=== PATIENT | female | born 1945 | race Caucasian/White ===

== ENCOUNTER → 2017-01-05 | Outpatient (CLI) | payer MEDICARE, BC ==
[~2017-01-05] MED LIST: GASTROGRAFIN SOLUTION 30ML (Q9963) As Ordered ONE; ISOVUE-370 76% 100ML VIAL (Q9967) As Ordered ONE
--- NOTE | 2017-01-05 14:54 | REP ---
Clinical: Weight loss. Technique: Axial contrast enhanced images from the lung bases to the pubic symphysis using oral and 100 ml Isovue 370 intravenous contrast material with precontrast and delayed images of the abdomen as well as coronal and sagittal re-formations. Comparison: None. Findings: Lung bases demonstrate diffuse fibrosis and honeycombing without acute consolidation or obvious nodule/mass. Visualized heart and pericardium appear normal. Small hiatal hernia noted at the gastroesophageal junction. Liver, spleen, pancreas, bilateral adrenal glands and kidneys are relatively normal. Few bilateral simple renal cysts measure up to 1.5 cm. The patient is status post cholecystectomy. The enteric system is without obstruction or obvious acute inflammatory process. Pelvis demonstrates normal bladder and age-appropriate uterus/adnexa. No pelvic fluid or ascites. No obvious intraperitoneal or retroperitoneal adenopathy. No free air. Atherosclerotic changes to the thoracic aorta and vasculature noted without aneurysm. Musculoskeletal structures demonstrate degenerative changes without focal osseous abnormality. Impression: Chronic nonacute changes as described above. No obvious acute intra-abdominal or pelvic pathology appreciated. Lung bases demonstrate fibrosis and honeycombing. Signed by Amanuel Aly MD 01/05/2017 11:31 A
== END ==
LOC: M RAD 09:29
PROVIDERS: ATTEND Nurse Practitioner Adult Health
DX: J98.8 Other specified respiratory disorders (principal); R63.4 Abnormal weight loss
CPT/HCPCS: 74178; Q9963; Q9967

== ENCOUNTER → 2017-02-22 | Outpatient (REF) | payer MEDICARE, BC ==
[2017-02-28 00:06] LABS: SJOGREN'S ANTI SS-A <0.2 AI (0.0-0.9); SJOGREN'S ANTI SS-B <0.2 AI (0.0-0.9)
== END ==
LOC: M LAB REF 17:08
PROVIDERS: ATTEND Internal Medicine Pulmonary Disease
DX: J84.10 Pulmonary fibrosis, unspecified (principal)

== ENCOUNTER → 2017-03-14 | Outpatient (CLI) | payer MEDICARE, BC ==
--- NOTE | 2017-03-14 14:53 | REP ---
PELVIC ULTRASOUND: Real-time sonographic evaluation of the pelvis is performed utilizing transabdominal and endovaginal technique. The bladder measures 4.3 x 2.8 x 7.2 cm. The uterus measures 7.5 x 3.0 x 4.3 cm. Oval heterogenous polyp or mass in the endometrial cavity measures 1.4 x 0.9 x 1.9 cm. There is a tiny amount of surrounding fluid. The right ovary could not be visualized, nor could the left ovary. I see no adnexal mass or free fluid. There is a fibroid posteriorly in the uterus measuring 1.6 cm in diameter. IMPRESSION: Oval mass or polyp in the endometrial cavity measuring 1.4 x 0.6 x 1.9 cm. Tiny amount of surrounding fluid is seen.
== END ==
LOC: M WHC 13:02
PROVIDERS: ATTEND Nurse Practitioner Family
DX: N84.0 Polyp of corpus uteri (principal); N95.0 Postmenopausal bleeding

== ENCOUNTER → 2017-03-16 | Outpatient (CLI) | payer MEDICARE, BC ==
[2017-03-16 16:34] LABS: BLOOD UREA NITROGEN 13 MG/DL (7-18); CREATININE FOR GFR 0.65 MG/DL (0.55-1.02); GLOMERULAR FILTRATION RATE > 60.0 (>39)
== END ==
LOC: M LAB 15:23
PROVIDERS: ATTEND Internal Medicine Pulmonary Disease
DX: J84.10 Pulmonary fibrosis, unspecified (principal)

== ENCOUNTER → 2017-03-16 | Outpatient (CLI) | payer MEDICARE, BC ==
--- NOTE | 2017-03-16 19:20 | ECHO ---
DATE OF PROCEDURE: 03/16/2017 REFERRING PHYSICIAN: Cipriano Zhou MD INDICATION: Shortness of breath, scleroderma and pulmonary hypertension. PATIENT LOCATION: Outpatient HEIGHT: 160 cm WEIGHT: 51 kg DIMENSIONS: IVS: 1.1 LV: 3.2 LVPW: 1,1 LA: 2.7 Aorta: 3.1 FINDINGS: Study is of acceptable technical quality. Left ventricle is normal size and grossly normal systolic function, estimated ejection fraction (EF) around 50-55%. Right ventricle does not appear enlarged. Both atria appear normal (left atrial volume index is 15.1 mL per meter squared). All four cardiac valves were reasonably well seen and appear normal. No pericardial effusion is noted. Inferior vena cava is normal size. Aortic root is normal. Aortic arch and abdominal aorta were not well seen. Doppler interrogation reveals no aortic stenosis or insufficiency. There is trace mitral and trace tricuspid insufficiency. Quality of tricuspid regurgitation (TR) jet was not sufficiently accurate to estimate pulmonary artery pressure. Pulmonic valve is functionally competent. Evaluation of diastolic function reveals grade 1 diastolic dysfunction (E velocity on mitral valve inflow is 55.3 cm/s, E prime velocity septal 5.9 and lateral 5.5 cm/s respectively). CONCLUSIONS: 1. Study is of acceptable technical quality. 2. Low normal left ventricle (LV) size and systolic function, grade 1 diastolic dysfunction. 3. No significant valvular disease. 4. Normal central venous pressure. 5. Unable to reliably estimate pulmonary artery pressure. No indirect signs to suggest pulmonary hypertension. COMMENTS: Subacute bacterial endocarditis (SBE) prophylaxis is not recommended. [facility]
== END ==
LOC: M CARPUL 14:13
PROVIDERS: ATTEND Internal Medicine Rheumatology
DX: J84.10 Pulmonary fibrosis, unspecified (principal); I51.9 Heart disease, unspecified

== ENCOUNTER → 2017-03-22 | Outpatient (CLI) | payer MEDICARE, BC ==
[~2017-03-22] MED LIST changes: -GASTROGRAFIN SOLUTION 30ML (Q9963) As Ordered ONE
--- NOTE | 2017-03-22 15:02 | REP ---
REASON: Pulmonary fibrosis. COMPARISON: 09/13/2016, a CT angio chest. CONTRAST UTILIZED: 100 mL Isovue-370. There is bilateral hilar adenopathy representing a change from the prior exam. There are no pleural or pericardial effusions. There is no change in appearance of the imaged upper abdomen or imaged osseous structures. Evaluation of the lung hernandez shows marked emphysematous change with honeycomb lung and scattered asymmetric septal opacities. This is particular to the lung bases, but is rather widespread and seen throughout the apical regions as well. The appearance of this has worsened from the prior exam. The asymmetric opacities could easily obscure a significant lung nodule. IMPRESSION: Advanced fibrotic changes as described above with newly developed adenopathy. Signed by Zechariah Jimenez DO 03/22/2017 04:14 P
== END ==
LOC: M RAD 12:45
PROVIDERS: ATTEND Internal Medicine Pulmonary Disease
DX: J84.10 Pulmonary fibrosis, unspecified (principal); R91.8 Other nonspecific abnormal finding of lung field
CPT/HCPCS: 71260; Q9967

== ENCOUNTER → 2017-04-26 | Outpatient (CLI) | payer MEDICARE, BC ==
[~2017-04-26] MED LIST changes: -ISOVUE-370 76% 100ML VIAL (Q9967) As Ordered ONE; +LEXA1TAB PO; +MYFO360T PO; +SPIR25TA2 PO; +TOPA25TA10 PO; +TYLE1TAB5 PO; +VITA200016 PO
[2017-05-03 00:09] LABS: A1A FOR PHENOTYPE 204 mg/dL (90-200)
== END ==
LOC: M LAB 13:46
PROVIDERS: ATTEND Internal Medicine Pulmonary Disease
DX: J84.10 Pulmonary fibrosis, unspecified (principal)

== ENCOUNTER → 2017-04-26 | Outpatient (CLI) | payer MEDICARE, BC ==
[2017-04-26 16:25] LABS: ANION GAP 8 MEQ/L (8-16); BLOOD UREA NITROGEN 14 MG/DL (7-18); CALCIUM LEVEL 9.6 MG/DL (8.8-10.2); CARBON DIOXIDE LEVEL 26 MEQ/L (21-32); CHLORIDE LEVEL 104 MEQ/L (98-107); CREATININE FOR GFR 0.58 MG/DL (0.55-1.02); GLOMERULAR FILTRATION RATE > 60.0 (>39); GLUCOSE, FASTING 101 MG/DL (83-110); SODIUM LEVEL 138 MEQ/L (136-145)
--- NOTE | 2017-04-26 21:11 | ECGEPIP ---
Stationary ECG Study [facility] Test Date: 2017-04-26 Pat Name: TAHMINA SCOTT Department: Room: - Gender: F [employer] Record Supervisor: KEV : 1945 Requested By: Ollie Burden Order Number: [id number] Reading MD: Neto Montgomery Measurements Intervals [place] Rate: 88 P: 80 AR: 160 QRS: 88 QRSD: 94 T: 40 QT: 357 QTc: 432 Interpretive Statements SINUS RHYTHM Delayed anterior R wave progression Comparison tracing not on file Electronically Signed On 04-26-2017 21:11:24 EDT by Neto Montgomery
== END ==
LOC: M LAB 13:50
PROVIDERS: ATTEND Anesthesiology
DX: Z01.818 Encounter for other preprocedural examination (principal); R94.31 Abnormal electrocardiogram [ECG] [EKG]; I10 Essential (primary) hypertension; F33.9 Major depressive disorder, recurrent, unspecified; F41.9 Anxiety disorder, unspecified

== ENCOUNTER → 2017-05-01 | Day surgery (SDC) | payer MEDICARE, BC ==
[~2017-05-01] VITALS: Ht 160 cm; Wt 50.3 kg
[~2017-05-01] MED LIST changes: +HYDROmorphone HCL 1 MG/ML SYRINGE (J1170) IV PRN; +KETOROLAC 60 MG/2 ML VIAL (J1885) As Ordered ONE; +LIDOCAINE 1% MDV 20ML VIAL SC PRN; +LIDOCAINE 2% INJ 100 MG/5 ML SDV (FOR ANES.) As Ordered ONE; +LR 1,000 ML IV ONE; +LR 1,000 ML IV SCH; +MIDAZOLAM INJ 2 MG/2 ML VIAL (J2250) As Ordered ONE; +ONDANSETRON 4MG/2ML VIAL (J2405) As Ordered ONE; +ONDANSETRON 4MG/2ML VIAL (J2405) IV PRN; +PHENYLephrine HCL 500 MCG/5 ML (100MCG/ML) SYRINGE (J2370) As Ordered ONE; +PROPOFOL 200 MG/20 ML VIAL As Ordered ONE; +ceFAZolin 1GM INJ (J0690) As Ordered ONE; +ceFAZolin SOD 1 GM in D5W MINI-BAG PLUS 50 ML IV ONE; +fentaNYL 100 MCG/2 ML INJECTION (J3010) As Ordered ONE; +fentaNYL 100 MCG/2 ML INJECTION (J3010) IV PRN
[2017-05-01 10:32] LABS: MEAN CORPUSCULAR HEMOGLOBIN 29.2 pg (27.0-33.0); MEAN CORPUSCULAR HGB CONC 32.5 g/dl (32.0-36.5); RED CELL DISTRIBUTION WIDTH 13.8 % (11.5-14.5); WHITE BLOOD COUNT 11.3 K/mm3 (4.0-10.0)
[2017-05-01 14:50] VITALS: BP 149/79
--- NOTE | 2017-05-02 05:49 | RO ---
DATE OF PROCEDURE: 05/01/2017 PREOPERATIVE DIAGNOSES: 1. Postmenopausal bleeding. 2. Intrauterine mass. POSTOPERATIVE DIAGNOSES: 1. Postmenopausal bleeding. 2. Intrauterine mass. PROCEDURE PERFORMED: Hysteroscopic MyoSure/removal of intrauterine mass. SURGEON: Dr. Iker Basilio. BEAUTY OPERATOR: None. ANESTHESIA: General. SPECIMENS TO PATHOLOGY: Intrauterine mass fragments, removed via MyoSure. ESTIMATED BLOOD LOSS: 5 mL. FLUIDS REPLACED: 1 liters lactated ringers. DRAINS: In and out catheter, 50 mL urine output. FLUID DEFICIT: 800 mL normal saline. COMPLICATIONS: Possible fundal uterine perforation. FINDINGS: Fundal intrauterine mass measuring approximately 1.5 cm in greatest dimension, pale, white, smooth appearing and at the level of the fundus. There was also concern for possible fundal uterine perforation at the end of the procedure. See operative dictation for further details of procedure. INDICATION: The patient is a 72-year-old with postmenopausal bleeding. Pelvic ultrasound revealed evidence of possible intrauterine mass measuring 1.9 cm in greatest dimension. PROCEDURE: The patient was counseled, consented on the risks, benefits, indications and alternatives of the procedure. Informed consent was obtained. She was taken to the operating room with an IV running and placed on the operating table in the dorsal supine position. General anesthesia was administered and the airway secured without any difficulty. She was then placed in low lithotomy position. Time-out was performed per protocol. She was prepared and draped in normal sterile fashion. The bladder was drained with an in-and-out catheter. Sterile speculum was placed with good visualization of the cervix. The anterior lip of the cervix was grasped with single-tooth tenaculum and downward traction was applied. The uterus sounded to approximately 6.5 to 7 cm. The cervix was sequentially dilated with Bryn dilators up to #15. The MyoSure hysteroscope was placed transcervically into the intrauterine cavity. The fundal mass was easily visualized. The MyoSure device was placed right up against this mass and the MyoSure device was activated. The tissue fragments were collected in the specimen bag. The MyoSure device was removed. After the MyoSure device was removed, an additional hysteroscope evaluation was performed. At this point, it was noted that there was difficulty maintaining uterine distension. There was possible small/pinpoint fundal uterine perforation that was both visualized and palpated with the uterine sound. Given this finding but lack of any significant bleeding, the decision was made to conclude the procedure. All the devices were removed from the uterus. The uterus was inspected at the cervical os and minimal to no bleeding was noted. There was only a small amount of drainage of clear fluid/saline from the hysteroscopic procedure. Additional time was spent observing the amount bleeding from the cervical os. Minimal to no bleeding from the cervical os was noted even with fundal pressure. The abdomen was nondistended. The fluid deficit at this point was 800 mL. The decision was made to conclude the procedure. All instruments were removed from the vagina. The sponge and instrument counts were correct. The patient was hemodynamically stable throughout the entire procedure. She was transferred to the postanesthesia care unit in good and stable condition. Because of possible uterine perforation, I will be administering Ancef 1 gram IV in the PACU. The patient will be continued to be observed closely during the immediate postoperative recovery. ALEX
== END | disposition home or self-care (01) ==
LOC: M SDC 09:54
PROVIDERS: ATTEND Obstetrics & Gynecology
DX: N95.0 Postmenopausal bleeding (principal); D25.9 Leiomyoma of uterus, unspecified; I10 Essential (primary) hypertension; K21.9 Gastro-esophageal reflux disease without esophagitis; F41.9 Anxiety disorder, unspecified; F32.9 Major depressive disorder, single episode, unspecified; G43.909 Migraine, unspecified, not intractable, without status migrainosus; R06.02 Shortness of breath; Z78.0 Asymptomatic menopausal state; Z86.79 Personal history of other diseases of the circulatory system; Z87.891 Personal history of nicotine dependence; Z87.39 Personal history of other diseases of the musculoskeletal system and connective tissue
CPT/HCPCS: 36415; 58558; 85027; 86850; 86900; 86901; 88305; J0690; J1885; J2250; J2370; J2405; J3010

== ENCOUNTER 2017-07-18 13:13 | Inpatient (IN) | payer MEDICARE, BC ==
[~2017-07-18] VITALS: Ht 160 cm; Wt 47.2 kg
[~2017-07-18 13:13] MED LIST changes: -HYDROmorphone HCL 1 MG/ML SYRINGE (J1170) IV PRN; -KETOROLAC 60 MG/2 ML VIAL (J1885) As Ordered ONE; -LIDOCAINE 1% MDV 20ML VIAL SC PRN; -LIDOCAINE 2% INJ 100 MG/5 ML SDV (FOR ANES.) As Ordered ONE; -LR 1,000 ML IV ONE; -LR 1,000 ML IV SCH; -MIDAZOLAM INJ 2 MG/2 ML VIAL (J2250) As Ordered ONE; -ONDANSETRON 4MG/2ML VIAL (J2405) As Ordered ONE; -ONDANSETRON 4MG/2ML VIAL (J2405) IV PRN; -PHENYLephrine HCL 500 MCG/5 ML (100MCG/ML) SYRINGE (J2370) As Ordered ONE; -PROPOFOL 200 MG/20 ML VIAL As Ordered ONE; +TOPA1TAB PO; -TOPA25TA10 PO; -ceFAZolin 1GM INJ (J0690) As Ordered ONE; -ceFAZolin SOD 1 GM in D5W MINI-BAG PLUS 50 ML IV ONE; -fentaNYL 100 MCG/2 ML INJECTION (J3010) As Ordered ONE; -fentaNYL 100 MCG/2 ML INJECTION (J3010) IV PRN
[2017-07-18] MEDS ORDERED: LISI10TA4 PO (13:40)
[2017-07-18] MEDS ORDERED: PRED5PAK2 PO (13:40)
[2017-07-18] MEDS ORDERED: NIFE30TA PO (13:40)
[2017-07-18 15:11] LABS: BASO % 0.1 % (0.0-1.0); EOS # 0.1 K/mm3 (0.0-0.50); EOS % 0.4 % (0.0-3.0); LARGE UNSTAINED CELL # 0.1 K/mm3 (0.0-0.4); LARGE UNSTAINED CELL % 0.5 % (0.0-4.0); LYMPH # 0.8 K/mm3 (1.5-4.5); LYMPH % 4.4 % (24.0-44.0); MEAN CORPUSCULAR HEMOGLOBIN 29.7 pg (27.0-33.0); MEAN CORPUSCULAR HGB CONC 33.1 g/dl (32.0-36.5); MEAN CORPUSCULAR VOLUME 89.7 fl (80.0-96.0); MONO # 0.7 K/mm3 (0.0-0.8); MONO % 4.3 % (0.0-5.0); NEUTROPHILS # 14.7 K/mm3 (1.8-7.7); NEUTROPHILS % 90.2 % (36.0-66.0); PLATELET COUNT, AUTOMATED 176 k/mm3 (150-450); RED CELL DISTRIBUTION WIDTH 16.4 % (11.5-14.5); WHITE BLOOD COUNT 16.3 K/mm3 (4.0-10.0)
[2017-07-18 15:46] LABS: CALCIUM LEVEL 8.7 MG/DL (8.8-10.2); CREATININE FOR GFR 1.88 MG/DL (0.55-1.02); GLOMERULAR FILTRATION RATE 27.9 (>39); POTASSIUM SERUM 3.5 MEQ/L (3.5-5.1)
[2017-07-18] MEDS ORDERED: NS 1,000 ML IV ONE (16:30)
[2017-07-18] MEDS ORDERED: PRED10TA2 PO (17:41)
[2017-07-18] MEDS ORDERED: MYFO180T PO (17:41)
[2017-07-18] MEDS ORDERED: TOPI100T9 PO (17:41)
[2017-07-18] MEDS ORDERED: IPRA6SP (17:42)
[2017-07-18] MEDS ORDERED: IPRATROPIUM 0.06% NASAL SPRAY 15 ML (ATROVENT) PRN (20:45)
[2017-07-18] MEDS ORDERED: POTASSIUM CHLORIDE INJ 10 MEQ in NS 1,000 ML IV SCH (20:45)
[2017-07-18] MEDS ORDERED: ONDANSETRON 4MG/2ML VIAL (J2405) IV PRN (21:00)
[2017-07-18] MEDS ORDERED: ACETAMINOPHEN TAB 650MG DOSE (2X325MG) PO PRN (21:00)
[2017-07-18] MEDS ORDERED: LISINOPRIL 10 MG TAB PO SCH (21:00)
[2017-07-18 21:57] LABS: CALCIUM LEVEL 8.2 MG/DL (8.8-10.2); CREATININE FOR GFR 1.75 MG/DL (0.55-1.02); GLOMERULAR FILTRATION RATE 30.3 (>39); POTASSIUM SERUM 3.5 MEQ/L (3.5-5.1)
[2017-07-18 22:30] VITALS: BP 180/68
[2017-07-18] MEDS: HEPARIN SOD (PORCINE) 5000 UNITS/ML VIAL SC SCH (23:31)
--- NOTE | 2017-07-19 01:09 | HPE ---
DATE OF ADMISSION: 07/18/2017 PRIMARY CARE PROVIDER: Aspen Degroot ORE BRIDGE OPERATOR: Dr. Zhou, phone number . ASBESTOS SHINGLE ROOFER: Dr. Medley CHIEF COMPLAINT: Hypertension. HISTORY OF PRESENT ILLNESS: This is a 72-year-old female patient with underlying medical history of systemic scleroderma with pulmonary involvement, history of anxiety, dyslipidemia, migraine headache, breast lumps, lower back pain, smoking (quit age 46), chronic obstructive pulmonary disease (COPD). Patient was sent in by patient's golf cart repairer, because patient has been having elevated blood pressure. Prescribed lisinopril with minimal improvement and for concerns of scleroderma and renal crisis. Patient's golf cart repairer had sent patient to the hospital to be evaluated. Subsequently request was made for patient to be admitted given elevated creatinine. Patient reported diarrhea five times today. Chronic difficulty swallowing but still able to pee. Denies any headache, vision change, chest pain, pressure, or discomfort. Case discussed with patient's golf cart repairer, who recommended angiotensin-converting enzyme (NIC) inhibitors and intravenous (IV) fluids for treatment and nephrology consultation. ALLERGIES: No known drug allergies. PAST MEDICAL HISTORY: 1. Scleroderma. 2. Anxiety. 3. Dyslipidemia. 4. Migraine. 5. Breast lump. 6. Chronic back pain. 7. History of smoking. 8. COPD. PAST SURGICAL HISTORY: 1. Cholecystectomy. 2. Tonsillectomy. 3. Wrist ganglion cyst. 4. Right breast biopsy. 5. Eye surgery. 6. Right bunionectomy. 7. Uterine fibroid removal. FAMILY HISTORY: Father with myocardial infarction ([place]), age 57. Mother with Alzheimer dementia and diabetes. SOCIAL HISTORY: Patient former smoker. Quit smoking 25 years ago. One pack per day smoking for 25 years. Denies alcohol drinking. REVIEW OF SYSTEMS: Reported mild difficulty swallowing that is chronic for the patient, diarrhea, and hypertension. All other review of systems is negative. HOME MEDICATIONS: - Lexapro 10 mg by mouth daily - ipratropium nasal spray every 6 hours as needed - lisinopril 10 mg by mouth daily - Myfortic 360 mg by mouth twice a day - Nifediac 30 mg by mouth daily - prednisone 5 mg by mouth daily - spironolactone 25 mg by mouth daily - topiramate 100 mg by mouth daily - acetaminophen extra strength by mouth at bedtime - vitamin D 6000 units by mouth weekly PHYSICAL EXAMINATION: VITAL SIGNS: Temperature 95.9, pulse 104, respirations 16, blood pressure 189/97, pulse oximetry 98% on room air. GENERAL: Patient frail, alert and oriented times three in no acute distress. HEENT: Skin taut. Normocephalic, atraumatic. PULMONARY: Bilaterally clear to auscultation. CARDIAC: Regular rate and rhythm. Mild tachycardia. SKIN: Tight and shiny, thick. ABDOMEN: Soft, nontender. No costovertebral angle (CVA) tenderness. Positive bowel sounds. EXTREMITIES: No clubbing, cyanosis, or edema. LABORATORY DATA: WBC 16.3, hemoglobin and hematocrit 10.4/31.5, platelets 176. Chemistry: Sodium 143, potassium 3.5, chloride 109, bicarbonate 23, BUN 40, creatinine 1.75. ASSESSMENT AND PLAN: This is a 72-year-old female patient with underlying medical history of scleroderma, anxiety, dyslipidemia, migraine headache, chronic obstructive pulmonary disease (COPD), systemic scleroderma with pulmonary involvement, hypertension, admitted with hypertension and acute renal failure. 1. Hypertension with acute renal insufficiency. Case discussed with patient's golf cart repairer. Possibility of scleroderma acute renal crisis. Treatment of choice was NIC inhibitors. Blood pressure control. IV fluids have been ordered. Nephrology has been consulted. Monitor blood pressure. If blood pressure does not improve, will start the patient on nitroglycerine drip. Follow with nephrology recommendation. Patient also on nifedipine and spironolactone. 2. Scleroderma. Continue current medication of Myfortic , prednisone. Case discussed with patient's golf cart repairer. 3. Anxiety. Continue current medication. 4. History of migraine headache. Continue current medication. 5. Acute renal insufficiency, possibly scleroderma acute renal crisis. Continue NIC inhibitors. Monitor kidney function. Followup ultrasounds. Renal studies as ordered. 6. Deep vein thrombosis (DVT) prophylaxis. Heparin subcutaneous. DISPOSITION PLANNING: Pending clinical improvement. Nephrology consultation.
[2017-07-19 05:55] LABS: MEAN CORPUSCULAR HEMOGLOBIN 29.7 pg (27.0-33.0); MEAN CORPUSCULAR VOLUME 89.9 fl (80.0-96.0); RED CELL DISTRIBUTION WIDTH 16.6 % (11.5-14.5); WHITE BLOOD COUNT 15.2 K/mm3 (4.0-10.0)
[2017-07-19 06:00] VITALS: BP 134/62
[2017-07-19] MEDS: CAPTOpril 12.5 MG TAB PO SCH ×3 (06:03→17:35)
[2017-07-19 06:05] LABS: ALBUMIN 2.9 GM/DL (3.2-5.2); CALCIUM LEVEL 8.6 MG/DL (8.8-10.2); CREATININE FOR GFR 1.79 MG/DL (0.55-1.02); GLOMERULAR FILTRATION RATE 29.6 (>39); PHOSPHORUS LEVEL 3.4 MG/DL (2.5-4.9); POTASSIUM SERUM 3.2 MEQ/L (3.5-5.1)
[2017-07-19] MEDS ORDERED: POTASSIUM CHLORIDE 10 MEQ SR TABLET PO ONE (08:30)
[2017-07-19] MEDS ORDERED: NIFEdipine 30 MG XL TAB PO SCH (09:00)
--- NOTE | 2017-07-19 09:16 | REP ---
URINARY TRACT SONOGRAPHY AND RENAL ARTERY DOPPLER FLOW ASSESSMENT: HISTORY: Acute kidney injury. Recent spike to blood pressure. MORPHOLOGIC FINDINGS: Scanning at the level of the urinary bladder shows that it is empty at the time of scanning. The renal cortical echogenicity pattern is normal and renal contours are smooth. Right renal dimensions are 9.7 x 4.3 x 4.6 cm. The left kidney measures 8.3 x 5.0 x 3.6 cm. No hydronephrosis is seen on either side. There is evidence of mild diffuse cortical atrophy on the left. There is a 1.7 cm septated cyst in the lower pole of the right kidney and other smaller cysts are seen. There is a 7 mm cyst in the lower pole laterally of the left kidney. No mass lesion is seen. IMPRESSION: Small somewhat atrophic kidneys without hydronephrosis. Small cysts. RENAL ARTERY DOPPLER FLOW ASSESSMENT: Peak systolic flow velocity in the abdominal aorta at the level of the main renal arteries is normal at 102.2 cm/s. Exam quality is inhibited by patient's inability to breath hold. Peak systolic flow velocity appears to be normal in the main renal arteries however recorded at 78 cm/s on the right and 74 cm/s on the left. Renal to aortic flow velocity ratios are therefore normal at 0.8 on the right and 0.7 on the left. Resistive indices and acceleration times are measured in the intralobar arteries of the upper, mid, and lower pole of each kidney and these values are normal bilaterally. IMPRESSION: No renal Doppler evidence to suggest renal artery stenosis. Signed by Toni Ang MD 07/19/2017 01:40 P
[2017-07-19] MEDS: SPIRONOLACTONE 25 MG TAB PO SCH (09:42)
[2017-07-19] MEDS: ESCITALOPRAM OXALATE 10 MG TAB (LEXAPRO) PO SCH (09:42)
[2017-07-19] MEDS: predniSONE 5 MG TAB PO SCH (09:42)
[2017-07-19] MEDS: TOPIRAMATE (TopAMAX) 100 MG TAB PO SCH (09:42)
[2017-07-19] MEDS: HEPARIN SOD (PORCINE) 5000 UNITS/ML VIAL SC SCH ×2 (09:43→20:22)
--- NOTE | 2017-07-19 09:53 | IPN ---
DATE: 07/19/2017 72-year-old female seen at bedside. No overnight issues reported. She is ordering breakfast. She denies chest pain, shortness of breath, nausea, vomiting, and abdominal pain. Her blood pressure does appear to be better controlled this morning than last evening. OBJECTIVE: Temperature is 97.6, pulse 86 and regular, respiratory rate 18 and nonlabored, blood pressure (BP) 134/62, and SPO2 is 97% on room air. General: The patient appears to be in no acute distress. She is alert, pleasant. HEENT: Unremarkable. Lungs: Clear. Heart: Regular rate and rhythm. Abdomen: Soft. Extremities: No edema or calf tenderness. She does appear to have hardening and tightening of patches skin more prominent over the extensor surfaces of the fingers, elbows, as well as, around her mouth and she is complaining of some cold intolerance for which we will try to make some adjustments with the temperature for the room. Neurologic: Cranial nerves II-XII grossly intact. LABORATORY DATA: White count is 15.2 down from 16,000, hemoglobin 10, platelets are 165,000. Sodium 145, potassium 3.2, chloride 111, bicarb 21, anion gap 13, BUN 40, creatinine 1.79, glucose 85. C-reactive protein 0.75. TSH 2.570. ASSESSMENT/PLAN: 1. Difficult to control hypertension, likely related to underlying scleroderma and renal involvement. Will continue with current antihypertensives and appreciate Dr. Medley's input. 2. Hypokalemia. Will replete. 3. Acute versus chronic renal failure with likely some degree of chronic kidney disease (CKD). Again, appreciate Dr. Medley's input. However, according to our labs in the computer, her creatinine in April was 0.58, which would lead me to think that this is an acute kidney injury. At any rate, I will defer this to Dr. Medley for further comment. Will likely want to avoid nephrotoxic drugs. 4. Scleroderma with what appears to be renal involvement and hypertension. Again, appreciate Dr. Medley's input. Continue with current antihypertensives and she is currently on prednisone. 5. Normochromic, normocytic anemia. She does not appear to have any signs of acute blood loss. Will go ahead and do iron and B12 studies as well as a retic count on her and check stool for guaiac. 6. Leukocytosis, most likely steroid demargination. She remains afebrile and no signs of infection. 7. History of chronic obstructive pulmonary disease (COPD), which appears to be stable without exacerbation. 8. Anxiety, stable. 9. Dyslipidemia, which she can followup outpatient for. 10. History of smoking, which we encouraged smoking cessation. She informed me that she actually quit 25 years ago. 11. Chronic low back pain, stable. 12. Deep vein thrombosis (DVT) prophylaxis, subcutaneous heparin. DISPOSITION: Appreciate Dr. Medley's further input and will see the results of the renal ultrasound for further comment and she will likely need outpatient followup with nephrology, which we will establish for her. Her primary care provider is Aspen Degroot and her survey project manager is Dr. Zhou in [place] and apparently she does have a history of scleroderma with pulmonary involvement prior to this episode.
[2017-07-19 10:44] LABS: RETIC HEMOGLOBIN CONTENT CHr 33.6 PG (24-36); RETICULOCYTE % 2.8 % (0.5-1.5)
[2017-07-19 10:58] LABS: PERCENT SATURATION 37.3 % (13.2-45.0)
[2017-07-19 11:46] VITALS: BP 192/94
[2017-07-19 11:51] LABS: FOLATE 14.8 NG/ML (>5.4)
[2017-07-19 13:23] VITALS: BP 150/70
[2017-07-19 14:00] VITALS: BP 144/80
[2017-07-19] MEDS: MYFORTIC 180 MG PO SCH ×3 (14:53→20:22)
--- NOTE | 2017-07-19 15:34 | REP ---
CHEST, TWO VIEWS: HISTORY: Cough. A diffuse increase in interstitial markings is present in the lungs. The cardiac silhouette is enlarged. The pulmonary vasculature is normal in appearance. The bony structure is intact. IMPRESSION: There is a diffuse increase in interstitial markings in the lungs. It cannot be determined if this is acute or chronic as no old films are available for comparison. This may represent an acute process such as interstitial edema or pneumonia, or possibly chronic interstitial fibrosis. Old films would be helpful for further evaluation. Signed by Miguelito Azul MD 07/19/2017 03:35 P
--- NOTE | 2017-07-19 17:42 | CR ---
DATE OF CONSULTATION: 07/19/2017 CONSULTATION REPORT FOR: Dr. Dennis Galarza CONSULTING PHYSICIAN: Dr. Medley REASON FOR CONSULTATION: Management of acute kidney injury and hypertension in a patient with history of scleroderma. HISTORY OF PRESENT ILLNESS: Magy Day is a 72-year-old female with past medical history of diagnosed case of scleroderma with pulmonary involvement, history of chronic obstructive pulmonary disease (COPD), and multiple other comorbidities as mentioned below. She follows up with rheumatology at [place] and recently she was having elevated blood pressures, so she was started on lisinopril, that did not help with the worsening blood pressures, and according to laboratory work done at rheumatology office, she was also found to have acute kidney injury, so the patient was sent to the hospital for further management of accelerated hypertension and acute kidney injury in the setting of scleroderma and possibility of scleroderma renal crisis. The patient was discussed with the on-call hospitalist by me overnight. She was started on captopril. Her blood pressures on arrival were almost 200 systolic. The patient's creatinine on arrival was 1.8. According to laboratory review, in our center, her baseline creatinine was 0.58 in April of 2017. The patient was seen and examined by me today morning. She was laying in the bed with no apparent distress. Her blood pressure had come down to systolics of 130s with the use of lisinopril and captopril. PAST MEDICAL HISTORY: The patient has a past medical history of: 1. Scleroderma. 2. Chronic obstructive pulmonary disease (COPD) secondary to scleroderma pulmonary involvement. 3. Anxiety. 4. Hyperlipidemia. 5. Migraine headaches. 6. History of chronic back pain. PAST SURGICAL HISTORY: She is status post: 1. Cholecystectomy. 2. History of tonsillectomy. 3. History of wrist ganglion cyst removal. 4. Right breast biopsy. 5. Eye surgery. 6. Right bunionectomy. 7. Uterine fibroid removal. ALLERGIES: No known drug allergies. FAMILY HISTORY: History of diabetes in mother and myocardial infarction (VT) in the father. SOCIAL HISTORY: The patient is a former smoker. She quit almost 25 years ago. She denies any alcohol abuse or drug abuse. REVIEW OF SYSTEMS: CONSTITUTIONAL: She denies any fever, chills, or rigors but she reports weight loss. EYES: She denies any blurry vision or double vision. EARS, NOSE AND THROAT: She denies any ear discharge but she does report some dysphagia. She denies any reflux. CARDIOVASCULAR: She denies any chest pain or lower extremity edema. RESPIRATORY: She reports history of chronic obstructive pulmonary disease (COPD) and dyspnea on moderate exertion. GASTROINTESTINAL: She denies any pain abdomen, constipation, or diarrhea but she does report dysphagia. GENITOURINARY: She denies any dysuria or hematuria. MUSCULOSKELETAL: She reports a history of skin tightness over the bilateral upper and lower extremities. CENTRAL NERVOUS SYSTEM: She denies any history of stroke or seizures. PSYCHIATRIC: The patient reports a history of depression and anxiety. ENDOCRINE: She denies any history of diabetes, hypothyroidism, or hyperthyroidism. HEMATOLOGIC/ONCOLOGIC: The patient denies any history of easy bruising or bleeding tendency. All other review of systems is negative. PHYSICAL EXAMINATION: GENERAL: The patient is awake, alert and oriented times three, sitting in the bed, in no apparent distress. VITAL SIGNS: Temperature is 99.1 degrees Fahrenheit, blood pressure is 144/80, pulse is 104, respiratory rate of 18, saturating 93% on room air. INTAKE AND OUTPUT: Urine output recorded as 200 mL yesterday, 600 mL so far today since overnight. HEAD AND NECK EXAMINATION: Extraocular muscles intact. Pupils are equally round and reactive to light. Mucous membranes are moist. NECK: Supple. There is no jugular venous distention (JVD). CARDIOVASCULAR: S1, S2, regular rate. No murmur, rub, or gallop. RESPIRATORY: Chest is clear to auscultation bilaterally. Bilateral equal air entry. No rales or rhonchi. ABDOMEN: Soft, nontender. No organomegaly. No ascites. MUSCULOSKELETAL: The patient has stiffness of her bilateral upper extremity and lower extremity skin and she is unable to make a fist because of scleroderma. There is no cyanosis of the extremities. CENTRAL NERVOUS SYSTEM: Power is 5/5 in all extremities. No focal neurological deficit at this time. PSYCHIATRIC: Normal mood and affect. LYMPH NODE: No significant cervical, axillary or inguinal lymphadenopathy. SKIN: Diffuse thickness of the skin of upper extremities and lower extremities. Otherwise, no rashes or ulceration. LABORATORY REVIEW: CBC showed a WBC of 15.2, hemoglobin is 10, platelets are 165. Urinalysis showed 2+ protein, negative nitrite, negative leukocyte esterase. Random osmolality was 343, random creatinine 31.4, random total protein was 72.8, random sodium was 97, random potassium was 12.7, random chloride is 92. BMP today morning showed sodium 145, potassium 3.2, chloride 111, bicarbonate is 21, BUN 40, creatinine is 1.79, it was 1.8 yesterday, calcium 8.6, ferritin 561, albumin 2.9, TSH is 2.5. MICROBIOLOGY: Blood cultures are pending so far. IMAGING STUDIES: Chest x-ray done today showed diffuse increase in the interstitial markings in the lungs. Renal ultrasound done last night showed no renal Doppler evidence of renal artery stenosis. CURRENT INPATIENT MEDICATIONS: The patient was on IV normal saline which was stopped. She is on Tylenol as needed. She has been started on captopril 12.5 mg by mouth every six hours, Lexapro 10 mg by mouth daily, heparin 5000 units every 12 hours, nifedipine 30 mg by mouth daily, potassium chloride 40 mEq times one dose was given today. She is on Zofran 4 mg every six hours IV as needed for nausea and vomiting, prednisone 5 mg daily, spironolactone 25 mg daily, Topamax 100 mg by mouth daily, and Myfortic 360 mg by mouth twice a day. ASSESSMENT: A 72-year-old female with past medical history of scleroderma with pulmonary involvement, chronic obstructive pulmonary disease (COPD), anxiety, admitted this time to the hospital with acute kidney injury and hypertensive urgency. PLAN: 1. Hypertensive urgency. It is most likely related to scleroderma renal crisis. Lisinopril was stopped yesterday. She has been started on Capoten 12.5 mg by mouth every six hours. I see some improvement in the blood pressure. If the systolic blood pressure stays above 140 then captopril dose will be increased to 25 mg every six hours. Okay to continue nifedipine 30 mg by mouth daily as well. 2. Acute kidney injury. It is most likely related to scleroderma renal crisis. It is okay to continue the angiotensin-converting enzyme (NIC) inhibitors in this acute kidney injury secondary to scleroderma renal crisis. However, the patient does not need the IV fluid hydration at this time. Continue to encourage oral hydration. Renal function is stable at this time since yesterday. Creatinine is 1.7. There is no urgent need of hemodialysis treatment at this time. 3. Hypokalemia. The patient was given a dose of potassium chloride 40 mEq by mouth times one dose. 4. 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 The patient follows up with rheumatology at [place]. She is currently on prednisone 5 mg by mouth daily and Myfortic 360 mg by mouth twice a day. I will continue the current dose of Myfortic at this time. However, if I do not see any improvement of renal function, I might have to hold the Myfortic which might be contributing to acute kidney injury. 5. History of depression and anxiety. Continue current dose of Lexapro 10 mg by mouth daily. Thank you for involving us in the care of this patient. We shall be happy to follow the patient along with you tomorrow morning. Plan of care was discussed with the on-call hospitalist overnight, Dr. Jyoti Francisco, and today morning with Dr. Dennis Galarza.
[2017-07-19 22:00] VITALS: BP 164/72
[2017-07-20 06:00] VITALS: BP 156/70
[2017-07-20 06:03] LABS: MEAN CORPUSCULAR HEMOGLOBIN 30.9 pg (27.0-33.0); MEAN CORPUSCULAR HGB CONC 33.8 g/dl (32.0-36.5); MEAN CORPUSCULAR VOLUME 91.5 fl (80.0-96.0); RED CELL DISTRIBUTION WIDTH 16.6 % (11.5-14.5); WHITE BLOOD COUNT 14.3 K/mm3 (4.0-10.0)
[2017-07-20 06:33] LABS: ALBUMIN 2.9 GM/DL (3.2-5.2); CALCIUM LEVEL 8.9 MG/DL (8.8-10.2); CREATININE FOR GFR 2.04 MG/DL (0.55-1.02); GLOMERULAR FILTRATION RATE 25.4 (>39)
--- NOTE | 2017-07-20 08:56 | ECGEPIP ---
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
[2017-07-20] MEDS: MYFORTIC 180 MG PO SCH ×2 (09:36→20:18)
[2017-07-20] MEDS: TOPIRAMATE (TopAMAX) 100 MG TAB PO SCH (09:37)
[2017-07-20] MEDS: predniSONE 5 MG TAB PO SCH (09:37)
[2017-07-20] MEDS: SPIRONOLACTONE 25 MG TAB PO SCH (09:37)
[2017-07-20] MEDS: HEPARIN SOD (PORCINE) 5000 UNITS/ML VIAL SC SCH ×2 (09:37→20:17)
[2017-07-20] MEDS: ESCITALOPRAM OXALATE 10 MG TAB (LEXAPRO) PO SCH (09:40)
[2017-07-20] MEDS: NIFEdipine 60 MG XL TAB PO SCH (09:41)
[2017-07-20 12:30] VITALS: BP 164/80
[2017-07-20] MEDS ORDERED: diphenhydrAMINE 25 MG CAP PO PRN (15:00)
--- NOTE | 2017-07-20 15:25 | IPN ---
DATE: 07/20/2017 72-year-old female seen at bedside. No overnight issues reported. No chest pain. No nausea, vomiting. No cough. OBJECTIVE Temperature 98.4, pulse 92, respiratory rate 16, blood pressure 164/80, SpO2 is 96% on room. GENERAL: The patient appears to be in no acute distress. Alert, pleasant. HEENT: Unremarkable. LUNGS: Clear. HEART: Regular rate and rhythm. ABDOMEN: Soft. EXTREMITIES: No edema. No calf tenderness. LABORATORY DATA: White count 14.3, hemoglobin 9.8, platelets 187,000. Sodium 144, potassium 4.0, chloride 113, bicarbonate 20, anion gap 11, BUN is 40, creatinine 2.04, glucose 94, magnesium 2.0, albumin 2.9. ASSESSMENT/PLAN 1. Difficult to control hypertension, likely related to scleroderma and renal crisis. Appreciate antihypertensive adjustments and input by Dr. Medley. 2. Hyperkalemia, resolved. 3. Acute versus chronic renal failure, likely some underlying degree of chronic kidney disease. Appreciate Dr. Medley's input. We will avoid nephrotoxic drugs. 4. Scleroderma with arthritic symptoms. We will make adjustments in her Tylenol to match what her home dose is. She follows with rheumatology in [place]. 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 5. Normochromic, normocytic anemia, which appears to be anemia of chronic disease with elevated ferritin level. 6. Leukocytosis, likely steroid demargination. She remains afebrile. No signs of infection. 7. Chronic obstructive pulmonary disease (COPD), stable without exacerbation. However, she does use oxygen at night. 8. Anxiety, stable. 9. Dyslipidemia. Followup as an outpatient. 10. History of smoking. Encourage smoking cessation. 11. Chronic low back pain, stable. 12. Deep vein thrombosis (DVT) prophylaxis. Subcutaneous heparin. DISPOSITION: We will defer to Dr. Medley regarding further adjustments in her blood pressure medications. She did have an appointment in [place] scheduled for tomorrow that she has rescheduled for a second opinion.
[2017-07-20] MEDS: ACETAMINOPHEN 500 MG TAB PO SCH (20:18)
[2017-07-20 22:00] VITALS: BP 160/76
[2017-07-21 06:00] VITALS: BP 170/78
[2017-07-21 08:06] LABS: MEAN CORPUSCULAR HGB CONC 33.5 g/dl (32.0-36.5); MEAN CORPUSCULAR VOLUME 92.7 fl (80.0-96.0); RED CELL DISTRIBUTION WIDTH 16.6 % (11.5-14.5); WHITE BLOOD COUNT 11.6 K/mm3 (4.0-10.0)
[2017-07-21 08:23] LABS: ALBUMIN 2.8 GM/DL (3.2-5.2); CALCIUM LEVEL 8.3 MG/DL (8.8-10.2); CREATININE FOR GFR 2.18 MG/DL (0.55-1.02); GLOMERULAR FILTRATION RATE 23.5 (>39); MAGNESIUM LEVEL 2.1 MG/DL (1.8-2.4); PHOSPHORUS LEVEL 4.2 MG/DL (2.5-4.9); POTASSIUM SERUM 3.9 MEQ/L (3.5-5.1)
[2017-07-21] MEDS: NIFEdipine 60 MG XL TAB PO SCH (09:24)
[2017-07-21] MEDS: HEPARIN SOD (PORCINE) 5000 UNITS/ML VIAL SC SCH ×2 (09:24→20:46)
[2017-07-21] MEDS: MYFORTIC 180 MG PO SCH ×2 (09:24→20:46)
[2017-07-21] MEDS: predniSONE 5 MG TAB PO SCH (09:24)
[2017-07-21] MEDS: ESCITALOPRAM OXALATE 10 MG TAB (LEXAPRO) PO SCH (09:25)
[2017-07-21] MEDS: TOPIRAMATE (TopAMAX) 100 MG TAB PO SCH (09:25)
[2017-07-21] MEDS: SPIRONOLACTONE 25 MG TAB PO SCH (09:25)
[2017-07-21] MEDS: ACETAMINOPHEN 500 MG TAB PO SCH ×2 (09:26→20:45)
[2017-07-21 11:20] VITALS: BP 174/97
--- NOTE | 2017-07-21 13:47 | IPN ---
DATE: 07/21/2017 72-year-old female seen at bedside. No overnight issues reported other than elevated blood pressure. She denies headache, lightheadedness, dizziness, blurry vision, no difficulty with chest pain or shortness of breath. OBJECTIVE: Temperature is 99.5, pulse 88, respiratory rate 26, BP 174/97, SPO2 is 96% on room air. General: The patient appears in no acute distress. Is alert, oriented. HEENT: Unremarkable. Lungs: Clear. Heart: Regular rhythm. Abdomen: Soft. Extremities: No edema. No calf tenderness. LABORATORY DATA: White count is 11.6, hemoglobin 9.6, platelets 181,000. Sodium 143, potassium 3.9, chloride 111, bicarb 23, anion gap 9, BUN is 40, creatinine is 2.18, glucose is 95. ASSESSMENT/PLAN: 1. Difficult to control hypertension related to scleroderma. Appreciate Dr. Medley's input. 2. Hyperkalemia resolved. 3. Acute on chronic renal failure. Again I appreciate Dr. Medley's input concerning the renal crisis she will be transferred to PCU started on IV NIC inhibitor. 4. Scleroderma with arthritic symptoms. Continue on Tylenol. She is currently on prednisone 5 mg, CellCept outpatient with the [facility] that she follows in [place]. 5. Anemia of chronic disease with elevated ferritin level. 6. Leukocytosis likely steroid demargination. She is afebrile. No signs of infection and trending downward. 7. Chronic obstructive pulmonary artery disease (COPD), stable. 8. Anxiety, stable. 9. Dyslipidemia. Followup outpatient. 10. Prior history of tobacco use. Encouraged smoking cessation. 11. Chronic low back pain, stable. 12. Deep venous thrombosis (DVT) prophylaxis subcutaneous heparin. DISPOSITION: As outlined we will transfer her to PCU, place on IV medications to control blood pressure per nephrology.
[2017-07-21 14:43] VITALS: BP 136/79
[2017-07-21] MEDS ORDERED: SLF 3 ML SYR IV PRN (15:00)
[2017-07-21 16:00] VITALS: BP 143/70
[2017-07-21] MEDS ORDERED: LABETALOL 100 MG TAB PO ONE (18:15)
[2017-07-21 18:33] VITALS: BP 171/83
[2017-07-21 19:45] VITALS: BP 147/73
--- NOTE | 2017-07-21 20:26 | IPN ---
DATE: 07/21/2017 SUBJECTIVE: The patient was seen and examined at the bedside today morning. Last 24-hour events were noted. The patient's antihypertensive regimen was increased yesterday; however, overnight her blood pressure was still in 160s to 170s. The patient was reporting headache this morning. Her renal function also continues to slowly deteriorate. Creatinine is up to 2.1 now. It was 2.0 yesterday. REVIEW OF SYSTEMS: The patient denies any fevers, chills, rigors. The patient reports headache. She denies any nausea, vomiting. She denies any chest pain. She does report mild baseline shortness of breath because of chronic obstructive pulmonary disease (COPD) and scleroderma renal involvement. The patient does report mild dysphagia and regurgitation. She denies any pain abdomen, constipation, or diarrhea. Rest of review of systems is negative. OBJECTIVE: VITAL SIGNS: Temperature this morning is 97.7 degrees Fahrenheit, blood pressure is 170/78, pulse is 93, respiratory rate 18, saturating 98% on room air. INTAKE AND OUTPUT: Urine output recorded as 500 mL yesterday, 425 mg so far today since overnight. Weight in the bed scale is 44.2 kg. PHYSICAL EXAMINATION: GENERAL: The patient is awake, alert, and oriented times three, lying in bed, no apparent distress. HEAD/NECK: Extraocular muscles intact. Pupils equal, round, and reactive to light. Mucous membranes are moist. Neck is supple. There is no jugular venous distention (JVD). CARDIOVASCULAR: S1, S2. Regular rate. No murmur, rub, or gallop. RESPIRATORY: Clear to auscultation bilaterally. Bilateral equal air entry. No rales or rhonchi. ABDOMEN: Soft, nontender. No organomegaly. No ascites. MUSCULOSKELETAL: The patient has stiffness of the bilateral upper extremities and lower extremities because of thickness of the skin. 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 Power is 5/5 in bilateral upper extremities. PSYCHIATRIC: Normal mood and affect. SKIN: Diffuse thickness of the skin of upper extremities and lower extremities. LABORATORY DATA: CBC showed WBC of 11.6, hemoglobin 9.6, platelets are 181. BMP showed sodium 143, potassium 3.9, chloride 111, bicarbonate 23, BUN 40, creatinine 2.1, it was two yesterday. GFR is down to 23. Calcium is 8.3. Phosphorus 4.2, magnesium 2.1. Albumin is 2.8. CURRENT INPATIENT MEDICATIONS: The patient's medications are all reviewed by me. She continues to be on Capoten 25 mg by mouth every six hours. Her nifedipine dose at this time is 60 mg daily. There is no other change in the medications today as compared with yesterday. ASSESSMENT: A 72-year-old female with past medical history of scleroderma with pulmonary involvement, chronic obstructive pulmonary disease (COPD), anxiety disorder, admitted this time to the hospital with hypertensive urgency and acute kidney injury. PLAN: 1. Hypertensive urgency. It is most likely secondary to scleroderma renal crisis. Patient's Captopril is at 25 mg every six hours. Nifedipine dose was increased to 60 mg daily. The patient is being transferred to progressive care unit (PCU) for close monitoring and possible intravenous (IV) medication administration if blood pressure does not come down. 2. Acute kidney injury. It is most likely secondary to scleroderma renal crisis. Okay to continue the high-dose angiotension-converting enzyme (NIC) inhibitor. Continue to monitor renal function and daily intake and output daily. There is no urgent need of hemodialysis at this time. 3. 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 Continue current dose of Myfortic 360 mg by mouth twice a day, and prednisone 5 mg by mouth daily. 4. History of depression and anxiety. Continue current dose of Lexapro 10 mg daily. The plan of care was discussed with the hospitalist team. The patient is being transferred to PCU. If blood pressure stays above 160 systolic, the patient will be started on IV Vasotec.
[2017-07-21] MEDS: SLF 3 ML SYR IV SCH (20:46)
[2017-07-22] VITALS (7 sets, daily range): BP systolic 123–159; BP diastolic 57–76
[2017-07-22 04:37] LABS: MEAN CORPUSCULAR HEMOGLOBIN 30.4 pg (27.0-33.0); MEAN CORPUSCULAR HGB CONC 33.1 g/dl (32.0-36.5); MEAN CORPUSCULAR VOLUME 91.7 fl (80.0-96.0); RED CELL DISTRIBUTION WIDTH 16.6 % (11.5-14.5); WHITE BLOOD COUNT 9.8 K/mm3 (4.0-10.0)
[2017-07-22 04:53] LABS: ALBUMIN 2.8 GM/DL (3.2-5.2); CALCIUM LEVEL 8.3 MG/DL (8.8-10.2); CREATININE FOR GFR 2.25 MG/DL (0.55-1.02); GLOMERULAR FILTRATION RATE 22.7 (>39); MAGNESIUM LEVEL 2.2 MG/DL (1.8-2.4); PHOSPHORUS LEVEL 4.4 MG/DL (2.5-4.9); POTASSIUM SERUM 4.1 MEQ/L (3.5-5.1)
[2017-07-22] MEDS: SLF 3 ML SYR IV SCH ×3 (05:53→21:00)
--- NOTE | 2017-07-22 08:53 | IPN ---
DATE: 07/22/2017 72-year-old seen at bedside resting comfortably. She was transferred to progressive care unit (PCU) yesterday for potential IV NIC inhibitor. She denies any chest pain, shortness of breath, productive sputum. She denies lightheadedness, dizziness, blurry vision or visual changes for that matter. OBJECTIVE: Temperature 97.8, pulse 95, respiratory rate 26, blood pressure (BP) 165/82, SPO2 97% on room air. General: The patient appears to be in no acute distress. She is alert and oriented, pleasant. HEENT: Unremarkable. Lungs: Clear. Heart: Regular rate and rhythm. Abdomen: Soft. Extremities: No edema. No calf tenderness. LABORATORY DATA: White count 9.8, hemoglobin 9.0, platelets 188,000. Sodium 143, potassium 4.1, chloride 110, bicarb 24, anion gap 9, BUN 45, creatinine 2.25 up from 2.18, glucose is 92. Albumin 2.8. ASSESSMENT/PLAN: 1. Difficult to control hypertension related to scleroderma and renal crisis. Appreciate Dr. Medley's input. 2. Hyperkalemia, resolved. 3. Acute on chronic renal failure. Appreciate Dr. Medley's input regarding the renal crisis. Her creatinine is slightly worse with arthritic symptoms. Continue Tylenol, prednisone 5 mg and outpatient Cellcept. Followup with the development representative that she follows with in [place]. 4. Anemia of chronic disease and elevated ferritin. Will follow. 5. Leukocytosis, this was likely related to steroid demargination. She is afebrile. No signs of infection and her white count is normalized today. 6. Chronic obstructive pulmonary disease (COPD), stable. 7. Anxiety, stable. 8. Dyslipidemia. Followup outpatient. 9. Prior history of tobacco use. 10. Chronic low back pain, stable. 11. Deep vein thrombosis (DVT) prophylaxis, subcutaneous heparin. DISPOSITION: The patient continues in the PCU. No issues seen on telemetry. Appreciate nephrology's input.
[2017-07-22] MEDS: HEPARIN SOD (PORCINE) 5000 UNITS/ML VIAL SC SCH ×2 (09:26→21:00)
[2017-07-22] MEDS: MYFORTIC 180 MG PO SCH ×2 (09:27→21:00)
[2017-07-22] MEDS: predniSONE 5 MG TAB PO SCH (09:27)
[2017-07-22] MEDS: LABETALOL 100 MG TAB PO SCH ×2 (09:27→21:04)
[2017-07-22] MEDS: SPIRONOLACTONE 25 MG TAB PO SCH (09:28)
[2017-07-22] MEDS: ESCITALOPRAM OXALATE 10 MG TAB (LEXAPRO) PO SCH (09:28)
[2017-07-22] MEDS: ACETAMINOPHEN 500 MG TAB PO SCH ×2 (09:28→20:59)
[2017-07-22] MEDS: NIFEdipine 60 MG XL TAB PO SCH (09:28)
[2017-07-22] MEDS: TOPIRAMATE (TopAMAX) 100 MG TAB PO SCH (09:28)
[2017-07-22] MEDS: OMEPRAZOLE 20 MG CAP PO SCH (12:57)
--- NOTE | 2017-07-22 20:16 | IPN ---
DATE: 07/22/2017 SUBJECTIVE: The patient was seen and examined at the bedside today morning in the intensive care unit (ICU). She is progressive care unit (PCU) status in the ICU now. She was transferred yesterday because of accelerated and uncontrolled hypertension. Capoten dose was increased to 50 mg every eight hours. She was also started on labetalol 100 mg by mouth twice a day. The patient reports that her blood pressure is better controlled now, and she reports her headache is improved at this time. REVIEW OF SYSTEMS: The patient denies any fevers, chills, rigors. She denies any headaches, nausea, vomiting, chest pain. She does report baseline shortness of breath. She denies any pain abdomen, constipation, or diarrhea. Rest of review of systems is negative. OBJECTIVE: VITAL SIGNS: Temperature is 98.2 degrees Fahrenheit, blood pressure is 134/69, pulse is 79, respiratory rate of 18, saturating 97% on room air. INTAKE AND OUTPUT: Urine output recorded as 675 mL yesterday, 300 mL so far today since overnight. Weight in the bed scale is 43.9 kg. PHYSICAL EXAMINATION: GENERAL: The patient is awake, alert, and oriented times three, sitting in the bed, no apparent distress. HEAD/NECK: Extraocular muscles intact. Pupils equal, round, and reactive to light. Mucous membranes are moist. Neck is supple. There is no jugular venous distention. (JVD). CARDIOVASCULAR: S1, S2. Regular rate. No murmur, rub, or gallop. RESPIRATORY: Chest is clear to auscultation bilaterally. Bilateral equal air entry. No rales or rhonchi. ABDOMEN: Soft, nontender. No organomegaly. No ascites. MUSCULOSKELETAL: The patient has stiffness of bilateral upper extremities. She is unable to make a fist with her hand. 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 Power is 5/5 in bilateral upper extremities. PSYCHIATRIC: Normal mood and affect. SKIN: Diffuse thickness of the skin of upper extremities and lower extremities because of scleroderma. LABORATORY DATA: CBC showed a WBC 9.8, hemoglobin nine, platelets 188. BMP showed sodium 143, potassium 4.1, chloride 110, bicarbonate 24, BUN 45, creatinine 2.2, calcium 8.3, phosphorus 4.4, magnesium 2.2, albumin 2.8. CURRENT INPATIENT MEDICATIONS: The patient's medications are all reviewed by me. She is currently on: - captopril 50 mg every eight hours - labetalol 100 mg by mouth twice a day - nifedipine 60 mg daily - spironolactone 25 mg daily There is no other change in the medications today as compared with yesterday. ASSESSMENT: A 72-year-old female with past medical history of scleroderma with pulmonary involvement, chronic obstructive pulmonary disease (COPD), anxiety disorder, admitted this time to the hospital with hypertensive urgency and acute kidney injury. PLAN: 1. Hypertensive urgency: The patient's medications were adjusted overnight. Captopril dose was increased to 50 mg every eight hours. Labetalol 100 mg twice a day was added. She continues to be on nifedipine 60 mg daily. Blood pressures are better controlled at this time. 2. Acute kidney injury: It is most likely secondary to scleroderma renal crisis. Continue the high-dose angiotension-converting enzyme (NIC) inhibitors at this time. Continue to monitor urine output. Creatinine has been fluctuating around 2.1 to 2.2. No urgent need of hemodialysis at this time. 3. 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 Continue current dose of Myfortic 360 mg by mouth twice a day, and prednisone 5 mg daily. 4. History of depression and anxiety, is well controlled with Lexapro 10 mg daily. It is okay to downgrade the patient to medical/surgical unit. Blood pressure is better controlled at this time.
[2017-07-23] VITALS (9 sets, daily range): BP systolic 120–148; BP diastolic 56–67
[2017-07-23 04:32] LABS: MEAN CORPUSCULAR HEMOGLOBIN 30.5 pg (27.0-33.0); MEAN CORPUSCULAR HGB CONC 32.7 g/dl (32.0-36.5); MEAN CORPUSCULAR VOLUME 93.3 fl (80.0-96.0); RED CELL DISTRIBUTION WIDTH 16.6 % (11.5-14.5)
[2017-07-23 04:41] LABS: ALBUMIN 2.7 GM/DL (3.2-5.2); CALCIUM LEVEL 8.3 MG/DL (8.8-10.2); CREATININE FOR GFR 2.51 MG/DL (0.55-1.02); MAGNESIUM LEVEL 2.3 MG/DL (1.8-2.4); POTASSIUM SERUM 4.1 MEQ/L (3.5-5.1)
[2017-07-23] MEDS: SLF 3 ML SYR IV SCH ×3 (06:00→21:12)
[2017-07-23] MEDS ORDERED: NIFE60TA6 PO (08:20)
[2017-07-23] MEDS ORDERED: CAPT1TAB18 PO (08:20)
[2017-07-23] MEDS ORDERED: LABE10TAB PO (08:20)
[2017-07-23] MEDS: MYFORTIC 180 MG PO SCH ×2 (08:28→20:19)
[2017-07-23] MEDS: ACETAMINOPHEN 500 MG TAB PO SCH ×2 (08:28→20:19)
[2017-07-23] MEDS: OMEPRAZOLE 20 MG CAP PO SCH (08:29)
[2017-07-23] MEDS: LABETALOL 100 MG TAB PO SCH ×4 (08:29→20:19)
[2017-07-23] MEDS: predniSONE 5 MG TAB PO SCH (08:29)
[2017-07-23] MEDS: ESCITALOPRAM OXALATE 10 MG TAB (LEXAPRO) PO SCH (08:29)
[2017-07-23] MEDS: NIFEdipine 60 MG XL TAB PO SCH (08:30)
[2017-07-23] MEDS: TOPIRAMATE (TopAMAX) 100 MG TAB PO SCH (08:30)
[2017-07-23] MEDS: HEPARIN SOD (PORCINE) 5000 UNITS/ML VIAL SC SCH (08:30)
[2017-07-23] MEDS: SPIRONOLACTONE 25 MG TAB PO SCH (09:00)
--- NOTE | 2017-07-23 13:08 | IPN ---
DATE: 07/23/2017 SUBJECTIVE: A 72-year-old female resting comfortably. She denies any overnight issues. No headache, lightheadedness, dizziness, chest pain, nausea, vomiting. No shortness of breath. OBJECTIVE: VITAL SIGNS: Temperature is 99.5, pulse 87 and regular, respiratory rate 18, blood pressure 125/58, SPO2 is 98% on room air. GENERAL: The patient appears to be in no acute distress. She is alert, pleasant. HEENT: Unremarkable. LUNGS: Clear. HEART: Regular rate and rhythm. ABDOMEN: Soft. EXTREMITIES: No edema. No calf tenderness. LABORATORY DATA: White count 10,000, hemoglobin 8.5, and platelets are 215,000. Sodium 142, potassium 4.1, chloride 110, bicarbonate 23, anion gap 9, BUN is 47, creatinine 2.51, glucose is 90. ASSESSMENT AND PLAN: 1. Difficult to control hypertension, likely related to renal crisis and scleroderma. Appreciate Dr. Medley's input and management regarding antihypertensives. 2. Elevated creatinine with acute on chronic renal failure. Again, appreciate Dr. Medley's input. We will likely make some further changes and keep her another 24 hours. 3. Scleroderma with arthritic and end-organ involvement. 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 4. Anemia of chronic disease, elevated ferritin. We will follow. 5. Leukocytosis with steroid demargination. No signs of infection. This has normalized and we will continue to follow. 6. Chronic obstructive pulmonary disease (COPD), stable. 7. Anxiety, stable. 8. Dyslipidemia. Followup outpatient. 9. Chronic low back pain, stable. 10. Deep vein thrombosis (DVT) prophylaxis with subcutaneous heparin. DISPOSITION: She has shown some improvement with control of her blood pressure. I would like to repeat a renal profile tomorrow morning and if she appears to be stable, we will plan on discharge and close followup with Dr. Medley outpatient.
--- NOTE | 2017-07-23 19:23 | IPN ---
DATE: 07/23/2017 SUBJECTIVE: Patient was seen and examined at the bedside today morning. Patient reports that she feels better. She denies any headache. Her blood pressure is very well controlled at this time with the current dose of Captopril, labetalol and nifedipine; however, there is a deterioration of her renal function. Creatinine has gone up to 2.5 now. REVIEW OF SYSTEMS: Patient denies any fever or chills, rigors, headache, nausea, vomiting. She denies any chest pain. She does report some mild dysphagia of solids because of scleroderma. He denies any abdominal pain, constipation or diarrhea. The rest of the review of systems is negative. OBJECTIVE: VITAL SIGNS: Temperature 99.5 degrees Fahrenheit, blood pressure 125/58, pulse 87, respiratory rate 18, saturating 98% on room air. INTAKE AND OUTPUT: Urine output recorded is 700 mL yesterday, 450 mL so far today since overnight. Weight in the bed scale is 46.4 kg. PHYSICAL EXAMINATION: GENERAL: Patient is awake, alert, oriented times three. Laying in bed, no apparent distress. HEAD AND NECK EXAM: Extraocular muscles intact. Pupils equally round and reactive to light. Mucous membranes are moist. Neck is supple. There is no jugular venous distention (JVD). CARDIOVASCULAR: S1, S2. Regular rate. No murmurs, rubs or gallops. RESPIRATORY: Clear to auscultation bilaterally. Bilaterally equal air entry. No rales or rhonchi. ABDOMEN: Soft, nontender. No organomegaly. No ascites. MUSCULOSKELETAL: Patient has stiffness of the bilateral upper extremities. Otherwise, no clubbing or cyanosis. CENTRAL NERVOUS SYSTEM: No focal neurological deficits. Power is 5/5 in all extremities. PSYCHIATRIC: Normal mood and affect. SKIN: Diffuse thickness of the skin of upper and lower extremities because of scleroderma. LABORATORY REVIEW: Complete blood count (CBC) showed WBC 10, hemoglobin 8.5, platelets 215. Basic metabolic panel showed sodium 142, potassium 4.1, chloride 110, bicarbonate 23, BUN 47, creatinine 2.5, it was 2.2 yesterday, calcium 8.3, phosphorous 5, magnesium 2.3. Albumin 2.7. CURRENT INPATIENT MEDICATIONS: Patient's medications were all reviewed by me. Her Captopril dose has been decreased to 37.5 mg by mouth every 8 hours. I have stopped her spironolactone. She continues to be on labetalol 100 mg by mouth twice a day and nifedipine 60 mg by mouth daily. ASSESSMENT: A 72-year-old female with past medical history of scleroderma with pulmonary involvement, chronic obstructive pulmonary disease (COPD), anxiety disorder, admitted this time because of hypertensive urgency and acute kidney injury. PLAN: 1. Hypertension. Patient's blood pressure is significantly better with current regimen of labetalol, nifedipine and Captopril; however, renal function continues to deteriorate. I am going to slightly decrease the Captopril dose to 37.5 mg by mouth every 8 hours. Continue to monitor the blood pressure. 2. Acute kidney injury. It is most likely secondary to scleroderma renal crisis. Continue the angiotensin-converting enzyme (NIC) inhibitors at this time, even though the renal function is not improving. There is no urgent need of hemodialysis at this time; however, renal function is deteriorating. The patient wants to go home. I explained to the patient that I would monitor her for one more day and if the renal function stabilizes, she can follow up with the renal service as outpatient within one week after discharge. 3. 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 Continue current dose of Myfortic 360 mg by mouth twice a day, and prednisone 5 mg by mouth daily. 4. History of depression and anxiety. Okay to continue Lexapro 10 mg by mouth daily. DISPOSITION: Patient can be downgraded to the medical/surgical unit. Possible discharge home if the renal function remains stable for the next 24 hours. Plan of care was discussed with the hospitalist team.
[2017-07-24] MEDS: SLF 3 ML SYR IV SCH (05:50)
[2017-07-24 06:00] VITALS: BP 137/62
[2017-07-24 07:10] LABS: ALBUMIN 2.7 GM/DL (3.2-5.2); CALCIUM LEVEL 8.2 MG/DL (8.8-10.2); CREATININE FOR GFR 2.52 MG/DL (0.55-1.02); GLOMERULAR FILTRATION RATE 19.9 (>39); MAGNESIUM LEVEL 2.2 MG/DL (1.8-2.4); PHOSPHORUS LEVEL 4.7 MG/DL (2.5-4.9); POTASSIUM SERUM 4.3 MEQ/L (3.5-5.1)
[2017-07-24 07:18] LABS: MEAN CORPUSCULAR HEMOGLOBIN 30.8 pg (27.0-33.0); MEAN CORPUSCULAR HGB CONC 32.9 g/dl (32.0-36.5); MEAN CORPUSCULAR VOLUME 93.5 fl (80.0-96.0); RED CELL DISTRIBUTION WIDTH 16.6 % (11.5-14.5); WHITE BLOOD COUNT 8.9 K/mm3 (4.0-10.0)
[2017-07-24] MEDS: MYFORTIC 180 MG PO SCH (10:29)
[2017-07-24] MEDS: LABETALOL 100 MG TAB PO SCH (10:31)
[2017-07-24] MEDS: TOPIRAMATE (TopAMAX) 100 MG TAB PO SCH (10:31)
[2017-07-24] MEDS: predniSONE 5 MG TAB PO SCH (10:31)
[2017-07-24] MEDS: ACETAMINOPHEN 500 MG TAB PO SCH (10:31)
[2017-07-24 10:32] VITALS: BP 130/60
[2017-07-24] MEDS: OMEPRAZOLE 20 MG CAP PO SCH (10:32)
[2017-07-24] MEDS: NIFEdipine 60 MG XL TAB PO SCH (10:32)
[2017-07-24] MEDS: ESCITALOPRAM OXALATE 10 MG TAB (LEXAPRO) PO SCH (10:32)
--- NOTE | 2017-07-24 12:14 | IPN ---
DATE: 07/24/2017 72-year-old female seen at bedside resting comfortably. No overnight issues overnight. No headache, lightheaded dizziness blurry vision, tinnitus and no chest pain, nausea, vomiting, shortness of breath. OBJECTIVE: Temperature is 94, pulse 82, respiratory rate is 18 nonlabored, blood pressure 130/60, SpO2 is 95% on room air. General: The patient appears to be in no acute distress. She is alert, pleasant. HEENT: Unremarkable. Lungs: Clear. Heart: Regular rhythm. Abdomen: Soft. Extremities: No edema or calf tenderness. LABS: White count 8.9, hemoglobin 8.8, platelets are 254,000. Sodium 141, potassium 4.3, chloride 109, bicarb 22, anion gap 10, BUN is 46, creatinine 2.52, glucose is 90, phosphorus 4.7. ASSESSMENT/PLAN: 1. Difficulty to control hypertension, much better controlled now. However, this is likely related to renal crisis secondary to scleroderma. Appreciate nephrology's assistance. 2. Renal crisis with acute kidney injury. Appreciate nephrology 3. Elevated creatinine due to acute chronic renal failure. She does not appear to be trending down much. Await nephrology's input. 4. 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 She follow up with her platen builder up in [place]. Continue on prednisone as she informs me that is scheduled for a second opinion in [place] sometime in the near future. 5. Anemia of chronic disease, elevated ferritin. Will follow. 6. Leukocytosis and steroid demargination. No signs of infection. This has normalized. Will continue to follow. 7. Chronic obstructive pulmonary disease (COPD), stable. 8. Anxiety, stable. 9. Dyslipidemia. She is stable. 10. Deep venous thrombosis (DVT) prophylaxis, subcu heparin. DISPOSITION: She has shown a remarkable improvement with her blood pressure control. However, creatinine has continued to be elevated. Will wait for nephrology's evaluation today to determine the next step.
[2017-07-24] MEDS ORDERED: CAPT31TA PO (12:20)
--- NOTE | 2017-07-25 08:25 | IPN ---
DATE OF SERVICE: 07/24/2017 SUBJECTIVE: The patient is seen at the bedside this morning. She notes no acute issues overnight. She is in good spirits this morning. Her blood pressure continued to be well controlled overnight, systolic 130s to 140s and her renal function has stayed stable in the previous 24 hours. I discussed discharge plans with the patient today including home blood pressure monitoring and the need for followup in the nephrology office by the end of this week. REVIEW OF SYSTEMS: The patient denies any fevers, chills, headache, nausea, vomiting, denies any chest pain, palpitations. She reports a so-so appetite. She denies any abdominal pain, constipation or diarrhea. The remainder of the review of systems is negative. OBJECTIVE: VITAL SIGNS: Afebrile 98.4, pulse 82, respiratory rate 18, blood pressure 137/62, pulse oximetry 95% on room air. INTAKE AND OUTPUT: Intake 760, output urine 950 mL. Weight on the bed scale 47.2 kg. PHYSICAL EXAMINATION: GENERAL: Patient is in bed. She is awake, alert and oriented times three in no apparent distress. HEAD/NECK EXAM: Extraocular muscles are intact. Mucous membranes are moist. Neck is supple. There is no jugular venous distention (JVD). CARDIOVASCULAR: S1, S2 regular rate. No peripheral edema. RESPIRATORY: Clear to auscultation bilaterally with symmetric air entry. ABDOMEN: Soft, nontender. MUSCULOSKELETAL: No clubbing or cyanosis. Decreased muscle mass. SKIN: Diffuse thickness of the skin of the upper and lower extremities. NEUROLOGIC: No focal deficits. PSYCHIATRIC: Appropriate mood and affect. LABORATORIES: WBC 8.9, hemoglobin 8.8, platelets 254, sodium 141, potassium 4.3, bicarbonate 22, creatinine 2.5 from 2.5 yesterday, BUN 46. Corrected calcium 9.3, phosphorous 4.7, magnesium 2.2, glucose 90. INPATIENT MEDICATIONS: Reviewed by myself. Patient remains on captopril 37.5 mg by mouth every 8 hours, labetalol 100 mg by mouth twice a day, and Procardia XL 60 mg by mouth daily. There is no change in her medications in the previous 24 hours. ASSESSMENT/PLAN: 72-year-old female with past medical history of scleroderma with pulmonary involvement, chronic obstructive pulmonary disease (COPD) and anxiety disorder, admitted because of hypertensive urgency with acute kidney injury (AILYN) secondary to scleroderma renal crisis. 1. Hypertension. Patient's blood pressure remains very stable, systolic mostly in the 130s on her current regimen of labetalol 100 mg twice a day, nifedipine 60 mg daily, and captopril 37.5 mg every 8 hours. Patient will be discharged today on the same antihypertensive medication regimen. She is instructed to call the nephrology office for systolic greater than 160 or less than 110. She is going to be seen in the office on Monday, July 28 with repeat blood work. 2. Acute kidney injury secondary to scleroderma renal crisis. Her captopril dose was decreased yesterday and she will continue on the same. She will need close outpatient followup in the office for monitoring of her renal parameters and titration of her antihypertensives. Her electrolytes and volume status are otherwise stable. 3. 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 She continues on prednisone and Myfortic. DISCHARGE PLANNING: Discussed with Dr. Galarza. Patient is okay for discharge today. I reviewed her home antihypertensive regimen with her and she will be seen in the office on Monday with repeat blood work.
--- NOTE | 2017-07-31 13:49 | IPN ---
DATE: 07/20/2017 SUBJECTIVE: Patient was seen and examined at the bedside today morning. Patient continued to be hypertensive yesterday, but she denies any headache, nausea, vomiting. Her captopril dose was increased to 25 mg every 6 hours. There is slight worsening of the renal function today. Creatinine went up from 1.79 to 2.04 today morning. REVIEW OF SYSTEMS: Patient denies any fever, chills, rigors, headache, nausea, vomiting. She does report difficulty with swallowing, and she also reports some shortness of breath secondary to scleroderma pulmonary involvement. Patient denies any pain in abdomen, constipation, or diarrhea. She denies any dysuria, hematuria. Rest of review of systems is negative. OBJECTIVE: Vital signs: Temperature is 97.9 degrees Fahrenheit, blood pressure is 156/70, pulse is 92, respiratory rate of 17, saturating 97% on room air. Intake and output: Urine output recorded is 1400 mL yesterday, 500 mL so far today since overnight. Weight in the bed scale is not available today. It was 45.5 kg. PHYSICAL EXAMINATION: GENERAL: Patient is awake, alert, oriented times three, lying in bed in no apparent distress. HEAD AND NECK: Extraocular muscles intact. Pupils equally round and reactive to light. Mucous membranes are moist. Neck is supple. There is no jugular venous distention (JVD). CARDIOVASCULAR: S1, S2, regular rate. No murmur, rub, or gallop. RESPIRATORY: Patient had mild crepitations at bases bilaterally. Otherwise bilateral equal air entry. ABDOMEN: Soft, nontender. No organomegaly. No ascites. MUSCULOSKELETAL: Patient has stiffness of the bilateral upper and lower extremities because of skin thickness. CENTRAL NERVOUS SYSTEM: No focal neurologic deficit. Power is 5/5 in all extremities. PSYCHIATRIC: Normal mood and affect. SKIN: Patient has diffuse thickness and tightness of the skin of upper and lower extremities. LABORATORY REVIEW: CBC showed a WBC of 14.3, hemoglobin 9.8, platelets are 187. BMP showed sodium 144, potassium 4, chloride 113, bicarbonate is 20, BUN is 40, creatinine is 2.04. Albumin is 2.9. Microbiology: Gastrointestinal (GI) panel for stools is negative. CURRENT INPATIENT MEDICATIONS: Patient's medications were all reviewed by me. Her medications have been changed: Captopril 25 mg by mouth every 6 hours. Nifedipine has been increased to 60 mg by mouth daily. She continues to be on spironolactone 25 mg daily. There is no other change in the medications today as compared with yesterday. ASSESSMENT: A 72-year-old female with past medical history of scleroderma with pulmonary involvement, chronic obstructive pulmonary disease (COPD) secondary to scleroderma lung involvement, anxiety disorder, admitted at this time to hospital with hypertensive urgency and acute kidney injury. RECOMMENDATIONS AND PLAN: 1. Hypertensive urgency. This most likely is related to scleroderma renal crisis. Patient is currently on captopril, which was increased to 25 mg every 6 hours. Blood pressures are running in 150s at this time. Continue the current dose of captopril. I have also increased the nifedipine dose to 60 mg by mouth daily. Continue to monitor for now. If the blood pressure remains high, then patient will need to be transferred to telemetry, and she will need intravenous (IV) Vasotec administration. 2. Acute kidney injury. Patient has mild amount of proteinuria, accelerated hypertension, history of scleroderma, most likely scleroderma renal crisis. There is no need of renal biopsy at this time. Continue the captopril administration at this time. There is no need of hemodialysis at this time. 3. 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 I discussed the case with the patient's purchase order checker, Dr. Zhou at [facility], and he wants to continue low dose of prednisone 5 mg daily and Myfortic 360 mg by mouth twice a day at this time. He agreed with the rest of the management of scleroderma renal crisis at this time. 4. History of depression and anxiety. Continue current dose of Lexapro. The plan of care was discussed with the patient at the bedside. MTDD
--- NOTE | 2017-08-20 20:17 | DSES ---
DATE OF ADMISSION: 07/18/2017 DATE OF DISCHARGE: 07/24/2017 ADMISSION/DISCHARGE DIAGNOSES: 1. Uncontrolled hypertension. 2. Acute renal insufficiency related scleroderma. 3. Scleroderma. 4. Anxiety. 5. Migraine headache. 6. Acute renal failure. 7. Dyslipidemia. 8. History of chronic low back pain. 9. History of smoking. 10. Chronic obstructive pulmonary disease (COPD). BRIEF HOSPITAL COURSE: Ms. Day is a 72-year-old female who presents to the emergency department. Patient of [facility]. She follows with Dr. Medley as an outpatient, and her linux system admin is in [place]. At any rate, presented with elevated blood pressure, was sent by her linux system admin to the emergency department for further information and possible admission for better control of her blood pressure. She did have complaints temporarily of some difficulty swallowing which is chronic. She denied any headache, blurry vision, double vision and neurologic issues. Her blood pressure on admission was noted to be 189/97, and creatinine was 1.75. She was admitted, placed on telemetry, started on angiotension-converting enzyme (NIC) inhibitors and managed by Dr. Medley, as well as a nitroglycerin drip overnight. Her blood pressure did come down slowly during the hospital stay. For further information regarding intake physical, labs, diagnostics, please refer to the history and physical (H and P) and labs and progress notes. PRIMARY CARE PROVIDER: Aspen Degroot. LATHE MACHINIST: Dr. Medley. CONDITION ON DISCHARGE: Good. DISPOSITION: Discharge to home. DISCHARGE MEDICATIONS: - captopril 12.5 mg daily - labetalol 100 mg twice a day - nifedipine ER 60 mg daily - Lexapro 10 mg daily - ipratropium bromide nasal spray two sprays per nostril every six hours as needed - Myfortic 360 mg twice a day - prednisone 5 mg daily - spironolactone 25 mg daily - topiramate 100 mg daily - Extra-Strength Tylenol one tablet at bedtime - vitamin D 50,000 units weekly. DISCHARGE INSTRUCTIONS: Discharge home. Activity as tolerated. Regular diet. Followup with nephrology in a week. Keep regular appointments primary care provider. Seek attention if symptoms should worsen. She voices understanding.
== END 2017-07-24 14:00 | disposition home or self-care (01) | DRG 699 ==
LOC: M ED 13:13 → M ED INP 20:46 → M MSPAV 22:15 → M ICU 07-21 11:15 → M MS5PR 07-23 21:35
PROVIDERS: ADMIT Hospitalist; ATTEND Hospitalist
DX: N28.0 Ischemia and infarction of kidney (principal); N17.9 Acute kidney failure, unspecified; M34.81 Systemic sclerosis with lung involvement; I10 Essential (primary) hypertension; F41.9 Anxiety disorder, unspecified; I16.0 Hypertensive urgency; E87.6 Hypokalemia; E78.5 Hyperlipidemia, unspecified; G43.909 Migraine, unspecified, not intractable, without status migrainosus; J44.9 Chronic obstructive pulmonary disease, unspecified; Z90.49 Acquired absence of other specified parts of digestive tract; Z87.891 Personal history of nicotine dependence; Z79.52 Long term (current) use of systemic steroids; Z79.899 Other long term (current) drug therapy

== ENCOUNTER → 2017-08-25 | Outpatient (REF) | payer MEDICARE, BC ==
[~2017-08-25] MED LIST changes: +CAPT1TAB18 PO; +CAPT31TA PO; +IPRA6SP; +LABE10TAB PO; +LISI10TA4 PO; +MYFO180T PO; +NIFE30TA PO; +NIFE60TA6 PO; +PRED10TA2 PO; +PRED5PAK2 PO; +TOPI100T9 PO
== END ==
LOC: M LAB REF 12:01
PROVIDERS: ATTEND Student in an Organized Health Care Education/Training Program
DX: M34.9 Systemic sclerosis, unspecified (principal)

== ENCOUNTER → 2017-11-24 | Outpatient (CLI) | payer MEDICARE, BC | LOC: M RAD 11:01 | DX: R06.02 Shortness of breath (principal) | CPT/HCPCS: 71250 ==

== ENCOUNTER → 2017-12-12 | Outpatient (CLI) | payer MEDICARE, BC | LOC: M PLARAD 12:42 | DX: R91.1 Solitary pulmonary nodule (principal); J84.10 Pulmonary fibrosis, unspecified; R06.02 Shortness of breath; M35.02 Sjogren syndrome with lung involvement | CPT/HCPCS: 78815 ==

== ENCOUNTER → 2018-01-04 | Outpatient (REF) | payer MEDICARE, BC ==
[2018-01-04 17:33] LABS: APPEARANCE, URINE CLEAR (CLEAR); BACTERIA, URINE AUTO NEGATIVE (NEGATIVE); BILIRUBIN, URINE AUTO NEGATIVE (NEGATIVE); BLOOD, URINE BLOOD NEGATIVE (NEGATIVE); COLOR, URINE YELLOW (YELLOW); GLUCOSE, URINE (UA) AUTO NEGATIVE (NEGATIVE); KETONE, URINE AUTO NEGATIVE (NEGATIVE); LEUKOCYTE ESTERASE, URINE AUTO NEGATIVE (NEGATIVE); MUCUS, URINE SMALL (NEGATIVE); NITRITE, URINE AUTO NEGATIVE (NEGATIVE); PROTEIN, URINE AUTO 1+ mg/dL (NEGATIVE); RBC, URINE AUTO 1 /HPF (0-3); SPECIFIC GRAVITY URINE AUTO 1.012 (1.002-1.035); SQUAMOUS EPITHELIAL CELL UR AU 0 /HPF (0-6); UROBILINOGEN, URINE AUTO 0.2 mg/dL (0.0-2.0); WBC, URINE AUTO 1 /HPF (0-3)
== END ==
LOC: M SMT 16:56
DX: N13.30 Unspecified hydronephrosis (principal); Z79.82 Long term (current) use of aspirin; Z79.899 Other long term (current) drug therapy
CPT/HCPCS: 81001

== ENCOUNTER → 2018-01-15 | Outpatient (CLI) | payer MEDICARE, BC ==
[~2018-01-15] MED LIST changes: -CAPT1TAB18 PO; -CAPT31TA PO; +FUROSEMIDE 20 MG/2 ML VIAL (J1940) As Ordered; -IPRA6SP; -LABE10TAB PO; -LEXA1TAB PO; -LISI10TA4 PO; -MYFO180T PO; -MYFO360T PO; -NIFE30TA PO; -NIFE60TA6 PO; -PRED10TA2 PO; -PRED5PAK2 PO; -SPIR25TA2 PO; -TOPA1TAB PO; -TOPI100T9 PO; -TYLE1TAB5 PO; -VITA200016 PO
== END ==
LOC: M RAD 09:56
DX: N13.30 Unspecified hydronephrosis (principal)
CPT/HCPCS: J1940

== ENCOUNTER → 2018-01-30 | Outpatient (REF) | payer MEDICARE, BC ==
[2018-01-30 14:48] LABS: APPEARANCE, URINE CLEAR (CLEAR); BACTERIA, URINE AUTO NEGATIVE (NEGATIVE); BILIRUBIN, URINE AUTO NEGATIVE (NEGATIVE); BLOOD, URINE BLOOD NEGATIVE (NEGATIVE); COLOR, URINE STRAW (YELLOW); GLUCOSE, URINE (UA) AUTO NEGATIVE (NEGATIVE); KETONE, URINE AUTO NEGATIVE (NEGATIVE); LEUKOCYTE ESTERASE, URINE AUTO NEGATIVE (NEGATIVE); NITRITE, URINE AUTO NEGATIVE (NEGATIVE); PROTEIN, URINE AUTO 1+ mg/dL (NEGATIVE); RBC, URINE AUTO 0 /HPF (0-3); SPECIFIC GRAVITY URINE AUTO 1.013 (1.002-1.035); SQUAMOUS EPITHELIAL CELL UR AU 0 /HPF (0-6); UROBILINOGEN, URINE AUTO 0.2 mg/dL (0.0-2.0); WBC, URINE AUTO 1 /HPF (0-3)
== END ==
LOC: M SMT 13:13
DX: N13.30 Unspecified hydronephrosis (principal); Z79.899 Other long term (current) drug therapy
CPT/HCPCS: 81001

== ENCOUNTER → 2018-02-02 | Outpatient (CLI) | payer MEDICARE, BC | LOC: M RAD 16:18 | DX: N13.30 Unspecified hydronephrosis (principal); J43.9 Emphysema, unspecified; I25.10 Atherosclerotic heart disease of native coronary artery without angina pectoris | CPT/HCPCS: 74176 ==

== ENCOUNTER → 2018-02-22 | Outpatient (CLI) | payer MEDICARE, BC ==
[2018-02-22 17:01] LABS: HEMATOCRIT 36.3 % (36.0-47.0); HEMOGLOBIN 11.3 g/dl (12.0-15.5); MEAN CORPUSCULAR HEMOGLOBIN 28.4 pg (27.0-33.0); MEAN CORPUSCULAR HGB CONC 31.1 g/dl (32.0-36.5); MEAN CORPUSCULAR VOLUME 91.2 fl (80.0-96.0); PLATELET COUNT, AUTOMATED 390 10^3/uL (150-450); RED BLOOD COUNT 3.98 10^6/uL (4.00-5.40); RED CELL DISTRIBUTION WIDTH 14.2 % (11.5-14.5); WHITE BLOOD COUNT 13.5 10^3/uL (4.0-10.0)
[2018-02-22 17:02] LABS: APPEARANCE, URINE CLEAR (CLEAR); BACTERIA, URINE AUTO NEGATIVE (NEGATIVE); BILIRUBIN, URINE AUTO NEGATIVE (NEGATIVE); BLOOD, URINE BLOOD NEGATIVE (NEGATIVE); COLOR, URINE YELLOW (YELLOW); GLUCOSE, URINE (UA) AUTO NEGATIVE (NEGATIVE); KETONE, URINE AUTO NEGATIVE (NEGATIVE); LEUKOCYTE ESTERASE, URINE AUTO NEGATIVE (NEGATIVE); MUCUS, URINE SMALL (NEGATIVE); NITRITE, URINE AUTO NEGATIVE (NEGATIVE); PROTEIN, URINE AUTO 1+ mg/dL (NEGATIVE); RBC, URINE AUTO 2 /HPF (0-3); SPECIFIC GRAVITY URINE AUTO 1.015 (1.002-1.035); SQUAMOUS EPITHELIAL CELL UR AU 0 /HPF (0-6); UROBILINOGEN, URINE AUTO 0.2 mg/dL (0.0-2.0); WBC, URINE AUTO 1 /HPF (0-3)
[2018-02-22 17:26] LABS: PROTHROMBIN TIME 13.3 SECONDS (12.4-14.5)
[2018-02-22 17:27] LABS: PARTIAL THROMBOPLASTIN TIME 28.6 SECONDS (26.8-37.9)
[2018-02-22 17:34] LABS: ANION GAP 8 MEQ/L (8-16); BLOOD UREA NITROGEN 44 MG/DL (7-18); CALCIUM LEVEL 9.1 MG/DL (8.8-10.2); CARBON DIOXIDE LEVEL 26 MEQ/L (21-32); CHLORIDE LEVEL 111 MEQ/L (98-107); CREATININE FOR GFR 1.64 MG/DL (0.55-1.30); GLOMERULAR FILTRATION RATE 32.6 (>39); GLUCOSE, FASTING 90 MG/DL (70-100); POTASSIUM SERUM 4.3 MEQ/L (3.5-5.1); SODIUM LEVEL 145 MEQ/L (136-145)
== END ==
LOC: M SMT 13:10
DX: Z01.818 Encounter for other preprocedural examination (principal); N13.30 Unspecified hydronephrosis
CPT/HCPCS: 80048

== ENCOUNTER 2018-03-06 08:50 | Day surgery (SDC) | payer MEDICARE, BC ==
[2018-03-06] MEDS: LR 1,000 ML IV (08:25)
[2018-03-06] MEDS ORDERED: LIDOCAINE 1% MDV 20ML VIAL SQ (09:00)
[2018-03-06] MEDS ORDERED: MIDAZOLAM INJ 2 MG/2 ML VIAL (J2250) As Ordered (11:43)
[2018-03-06] MEDS ORDERED: PROPOFOL 200 MG/20 ML VIAL As Ordered (11:43)
[2018-03-06] MEDS ORDERED: METOCLOPRAMIDE INJ 10MG/2ML VIAL (J2765) As Ordered (11:43)
[2018-03-06] MEDS ORDERED: fentaNYL 100 MCG/2 ML INJECTION (J3010) As Ordered (11:43)
[2018-03-06] MEDS ORDERED: LIDOCAINE 2% INJ 100 MG/5 ML SDV (FOR ANES.) As Ordered (11:43)
[2018-03-06] MEDS ORDERED: ONDANSETRON 4MG/2ML VIAL (J2405) As Ordered (11:44)
[2018-03-06] MEDS: CONRAY-60 60% 50ML VIAL (Q9961) As Ordered (11:49)
[2018-03-06] MEDS ORDERED: LABETALOL HCL 100 MG/20 ML VIAL As Ordered (12:43)
[2018-03-06] MEDS ORDERED: LR 1,000 ML IV (12:45)
[2018-03-06] MEDS ORDERED: ACETAMINOPHEN 650MG ER TAB (TYLENOL ARTHRITIS) PO (12:45)
[2018-03-06] MEDS ORDERED: fentaNYL 100 MCG/2 ML INJECTION (J3010) IV (12:45)
[2018-03-06] MEDS ORDERED: ONDANSETRON 4MG/2ML VIAL (J2405) IV (12:45)
[2018-03-06] MEDS: LABETALOL HCL 100 MG/20 ML VIAL IV ×3 (12:53→13:10)
[2018-03-06] MEDS ORDERED: CIPROFLOXACIN 500 MG TAB PO (18:00)
== END 2018-03-07 14:17 | disposition home or self-care (01) ==
LOC: M SDC 08:50
DX: N13.0 Hydronephrosis with ureteropelvic junction obstruction (principal); I10 Essential (primary) hypertension; J84.10 Pulmonary fibrosis, unspecified; M34.81 Systemic sclerosis with lung involvement; M54.5 Low back pain; K44.9 Diaphragmatic hernia without obstruction or gangrene; J44.9 Chronic obstructive pulmonary disease, unspecified; Z87.891 Personal history of nicotine dependence; Z79.82 Long term (current) use of aspirin; Z79.52 Long term (current) use of systemic steroids; Z79.899 Other long term (current) drug therapy
CPT/HCPCS: 52332

== ENCOUNTER → 2018-03-16 | Outpatient (CLI) | payer MEDICARE, BC ==
[2018-03-16 17:11] LABS: HEMATOCRIT 35.3 % (36.0-47.0); HEMOGLOBIN 11.1 g/dl (12.0-15.5); MEAN CORPUSCULAR HEMOGLOBIN 28.9 pg (27.0-33.0); MEAN CORPUSCULAR HGB CONC 31.4 g/dl (32.0-36.5); MEAN CORPUSCULAR VOLUME 91.9 fl (80.0-96.0); PLATELET COUNT, AUTOMATED 435 10^3/uL (150-450); RED BLOOD COUNT 3.84 10^6/uL (4.00-5.40); RED CELL DISTRIBUTION WIDTH 14.1 % (11.5-14.5); WHITE BLOOD COUNT 10.7 10^3/uL (4.0-10.0)
[2018-03-16 17:18] LABS: ANION GAP 7 MEQ/L (8-16); BLOOD UREA NITROGEN 36 MG/DL (7-18); CALCIUM LEVEL 8.6 MG/DL (8.8-10.2); CARBON DIOXIDE LEVEL 25 MEQ/L (21-32); CHLORIDE LEVEL 108 MEQ/L (98-107); CREATININE FOR GFR 1.94 MG/DL (0.55-1.30); GLOMERULAR FILTRATION RATE 26.9 (>39); GLUCOSE, FASTING 119 MG/DL (70-100); POTASSIUM SERUM 5.1 MEQ/L (3.5-5.1); SODIUM LEVEL 140 MEQ/L (136-145)
[2018-03-16 17:29] LABS: PROTHROMBIN TIME 13.3 SECONDS (12.4-14.5)
[2018-03-16 17:30] LABS: PARTIAL THROMBOPLASTIN TIME 30.3 SECONDS (26.8-37.9)
== END ==
LOC: M SMT 14:48
DX: Z01.812 Encounter for preprocedural laboratory examination (principal); Z79.01 Long term (current) use of anticoagulants
CPT/HCPCS: 80048

== ENCOUNTER → 2018-03-21 | Outpatient (CLI) | payer MEDICARE, BC ==
[2018-03-21 13:18] LABS: APPEARANCE, URINE HAZY (CLEAR); BACTERIA, URINE AUTO NEGATIVE (NEGATIVE); BILIRUBIN, URINE AUTO NEGATIVE (NEGATIVE); BLOOD, URINE BLOOD 3+ (NEGATIVE); COLOR, URINE YELLOW (YELLOW); GLUCOSE, URINE (UA) AUTO NEGATIVE (NEGATIVE); KETONE, URINE AUTO NEGATIVE (NEGATIVE); LEUKOCYTE ESTERASE, URINE AUTO 3+ (NEGATIVE); MUCUS, URINE SMALL (NEGATIVE); NITRITE, URINE AUTO NEGATIVE (NEGATIVE); PROTEIN, URINE AUTO 2+ mg/dL (NEGATIVE); RBC, URINE AUTO TNTC /HPF (0-3); SPECIFIC GRAVITY URINE AUTO 1.013 (1.002-1.035); SQUAMOUS EPITHELIAL CELL UR AU 0 /HPF (0-6); UROBILINOGEN, URINE AUTO 0.2 mg/dL (0.0-2.0); WBC, URINE AUTO 13 /HPF (0-3)
== END ==
LOC: M SMT 11:44
DX: Z01.812 Encounter for preprocedural laboratory examination (principal); Z79.899 Other long term (current) drug therapy
CPT/HCPCS: 36415

== ENCOUNTER 2018-03-27 06:00 | Inpatient (IN) | payer MEDICARE, BC ==
[2018-03-27] MEDS ORDERED: ROCURONIUM BROMIDE 50 MG/5 ML VIAL As Ordered ×2 (07:05→08:15)
[2018-03-27] MEDS ORDERED: PROPOFOL 200 MG/20 ML VIAL As Ordered (07:05)
[2018-03-27] MEDS ORDERED: LIDOCAINE 2% INJ 100 MG/5 ML SDV (FOR ANES.) As Ordered (07:05)
[2018-03-27] MEDS: LR 1,000 ML IV (07:05)
[2018-03-27] MEDS ORDERED: fentaNYL 100 MCG/2 ML INJECTION (J3010) As Ordered ×3 (07:06→10:34)
[2018-03-27] MEDS ORDERED: MIDAZOLAM INJ 2 MG/2 ML VIAL (J2250) As Ordered (07:06)
[2018-03-27] MEDS ORDERED: LABETALOL HCL 100 MG/20 ML VIAL As Ordered (09:06)
[2018-03-27] MEDS ORDERED: NEOSTIGMINE 10 MG/10 ML VIAL (J2710) As Ordered (10:11)
[2018-03-27] MEDS ORDERED: GLYCOPYRROLATE INJ 0.2 MG/ML 2 ML VIAL As Ordered (10:11)
[2018-03-27] MEDS ORDERED: ONDANSETRON 4MG/2ML VIAL (J2405) As Ordered (10:11)
[2018-03-27] MEDS ORDERED: HYDROmorphone HCL 1 MG/ML SYRINGE (J1170) IV (11:30)
[2018-03-27] MEDS ORDERED: LR 1,000 ML IV (11:30)
[2018-03-27] MEDS ORDERED: PERCOCET 5MG/325MG TAB PO (11:30)
[2018-03-27] MEDS ORDERED: ONDANSETRON 4MG/2ML VIAL (J2405) IV ×2 (11:30)
[2018-03-27 11:34] LABS: HEMATOCRIT 33.2 % (36.0-47.0); HEMOGLOBIN 10.4 g/dl (12.0-15.5); MEAN CORPUSCULAR HEMOGLOBIN 29.1 pg (27.0-33.0); MEAN CORPUSCULAR HGB CONC 31.3 g/dl (32.0-36.5); PLATELET COUNT, AUTOMATED 279 10^3/uL (150-450); RED BLOOD COUNT 3.57 10^6/uL (4.00-5.40); RED CELL DISTRIBUTION WIDTH 13.9 % (11.5-14.5)
[2018-03-27] MEDS: fentaNYL 100 MCG/2 ML INJECTION (J3010) IV ×3 (11:45→11:55)
[2018-03-27 11:56] LABS: ANION GAP 7 MEQ/L (8-16); BLOOD UREA NITROGEN 43 MG/DL (7-18); CALCIUM LEVEL 8.1 MG/DL (8.8-10.2); CARBON DIOXIDE LEVEL 23 MEQ/L (21-32); CHLORIDE LEVEL 111 MEQ/L (98-107); CREATININE FOR GFR 1.69 MG/DL (0.55-1.30); GLOMERULAR FILTRATION RATE 31.5 (>39); GLUCOSE, FASTING 167 MG/DL (70-100); POTASSIUM SERUM 4.6 MEQ/L (3.5-5.1); SODIUM LEVEL 141 MEQ/L (136-145)
[2018-03-27] MEDS: PANTOPRAZOLE 40MG INJ (PROTONIX) (C9113) IV (14:06)
[2018-03-27] MEDS: ACETAMINOPHEN 650MG ER TAB (TYLENOL ARTHRITIS) PO ×2 (14:06→21:40)
[2018-03-27] MEDS: KCL 20MEQ IN D5/0.45NS 1000ML 1,000 ML IV ×2 (14:06→21:40)
[2018-03-27] MEDS: CAPTOpril 12.5 MG TAB PO ×2 (16:58→21:40)
[2018-03-27] MEDS: MORPHINE 4 MG/ML 1ML VIAL/SYRINGE (J2270) IV (20:02)
[2018-03-27] MEDS: LABETALOL 100 MG TAB PO (21:48)
[2018-03-28] MEDS: MORPHINE 4 MG/ML 1ML VIAL/SYRINGE (J2270) IV ×2 (00:05→01:47)
[2018-03-28] MEDS ORDERED: HYDROmorphone HCL 1 MG/ML SYRINGE (J1170) IV (02:30)
[2018-03-28] MEDS ORDERED: HYDROMORPHONE HCL 0.5 MG/ 0.5 ML SYRINGE (J1170 PER 1) IV ×2 (02:30)
[2018-03-28] MEDS: HYDROmorphone HCL 1 MG/ML SYRINGE (J1170) IV ×2 (02:39→06:01)
[2018-03-28 05:50] LABS: HEMOGLOBIN 10.1 g/dl (12.0-15.5); MEAN CORPUSCULAR HEMOGLOBIN 28.9 pg (27.0-33.0); MEAN CORPUSCULAR HGB CONC 31.6 g/dl (32.0-36.5); MEAN CORPUSCULAR VOLUME 91.4 fl (80.0-96.0); PLATELET COUNT, AUTOMATED 313 10^3/uL (150-450); RED CELL DISTRIBUTION WIDTH 13.8 % (11.5-14.5); WHITE BLOOD COUNT 15.9 10^3/uL (4.0-10.0)
[2018-03-28] MEDS: ACETAMINOPHEN 650MG ER TAB (TYLENOL ARTHRITIS) PO ×3 (06:02→20:38)
[2018-03-28] MEDS: NIFEdipine 10 MG CAP PO (06:14)
[2018-03-28 06:17] LABS: ANION GAP 5 MEQ/L (8-16); BLOOD UREA NITROGEN 40 MG/DL (7-18); CALCIUM LEVEL 8.4 MG/DL (8.8-10.2); CARBON DIOXIDE LEVEL 24 MEQ/L (21-32); CHLORIDE LEVEL 109 MEQ/L (98-107); CREATININE FOR GFR 1.97 MG/DL (0.55-1.30); GLOMERULAR FILTRATION RATE 26.4 (>39); GLUCOSE, FASTING 98 MG/DL (70-100); POTASSIUM SERUM 4.8 MEQ/L (3.5-5.1); SODIUM LEVEL 138 MEQ/L (136-145)
[2018-03-28] MEDS: CIPROFLOXACIN 250 MG TAB PO ×2 (08:11→17:09)
[2018-03-28] MEDS: LABETALOL 100 MG TAB PO ×2 (08:11→20:39)
[2018-03-28] MEDS: CAPTOpril 12.5 MG TAB PO (08:11)
[2018-03-28] MEDS: cloNIDine 0.1 MG TAB PO ×3 (08:12→20:38)
[2018-03-28] MEDS: NITROGLYCERIN 0.2 MG/HR PATCH TD (08:12)
[2018-03-28 08:35] LABS: ESTIMATED AVERAGE GLUCOSE 100 MG/DL (60-110); HEMOGLOBIN A1c 5.1 %
[2018-03-28] MEDS: PANTOPRAZOLE 40MG INJ (PROTONIX) (C9113) IV (11:52)
[2018-03-28] MEDS: NIFEdipine 60 MG XL TAB PO (13:20)
[2018-03-28] MEDS: oxyCODONE 5MG TAB PO ×2 (13:21→20:39)
[2018-03-28] MEDS: **NOTE PATIENT COMMENT** MISC XX (20:39)
[2018-03-29] MEDS: ACETAMINOPHEN 650MG ER TAB (TYLENOL ARTHRITIS) PO ×3 (05:33→21:30)
[2018-03-29] MEDS: CIPROFLOXACIN 250 MG TAB PO (05:33)
[2018-03-29 06:32] LABS: BASO % 0.1 % (0.0-1.0); EOS % 0.1 % (0.0-3.0); HEMATOCRIT 32.5 % (36.0-47.0); HEMOGLOBIN 10.6 g/dl (12.0-15.5); IMMATURE GRANULOCYTE % 0.7 % (0-3.0); LYMPH # 1.3 10^3/uL (1.5-4.5); LYMPH % 5.5 % (24.0-44.0); MEAN CORPUSCULAR HGB CONC 32.6 g/dl (32.0-36.5); MONO # 1.3 10^3/uL (0.0-0.8); MONO % 5.8 % (0.0-5.0); NEUTROPHILS % 87.8 % (36.0-66.0); PLATELET COUNT, AUTOMATED 264 10^3/uL (150-450); RED BLOOD COUNT 3.65 10^6/uL (4.00-5.40); RED CELL DISTRIBUTION WIDTH 13.9 % (11.5-14.5); WHITE BLOOD COUNT 22.7 10^3/uL (4.0-10.0)
[2018-03-29 07:09] LABS: ALBUMIN 2.3 GM/DL (3.2-5.2); ALKALINE PHOSPHATASE 101 U/L (45-117); ALT/SGPT 80 U/L (12-78); ANION GAP 8 MEQ/L (8-16); AST/SGOT 110 U/L (7-37); BILIRUBIN,TOTAL 0.4 MG/DL (0.2-1.0); BLOOD UREA NITROGEN 43 MG/DL (7-18); CALCIUM LEVEL 8.5 MG/DL (8.8-10.2); CARBON DIOXIDE LEVEL 22 MEQ/L (21-32); CHLORIDE LEVEL 108 MEQ/L (98-107); CREATININE FOR GFR 2.53 MG/DL (0.55-1.30); GLOMERULAR FILTRATION RATE 19.8 (>39); GLUCOSE, FASTING 95 MG/DL (70-100); MAGNESIUM LEVEL 1.8 MG/DL (1.8-2.4); POTASSIUM SERUM 4.2 MEQ/L (3.5-5.1); SODIUM LEVEL 138 MEQ/L (136-145); TOTAL PROTEIN 5.6 GM/DL (6.4-8.2)
[2018-03-29] MEDS: NITROGLYCERIN 0.2 MG/HR PATCH TD (10:20)
[2018-03-29] MEDS: NS 1,000 ML IV ×2 (10:30→14:00)
[2018-03-29 10:42] LABS: BEDSIDE GLUCOSE 104 MG/DL (83-110)
[2018-03-29] MEDS ORDERED: MEROPENEM INJ 1 GM in APPROPRIATE DILUENT 1 EA IV (11:00)
[2018-03-29 11:14] LABS: CREATININE BF 2.6 MG/DL (NOT ESTABLISHED); SOURCE, BODY FLUID CREATININE OTHER
[2018-03-29] MEDS ORDERED: PIPERACILLIN/TAZOBACTAM SOD 2.25 GM in D5W MINI-BAG PLUS 50 ML IV (11:15)
[2018-03-29] MEDS ORDERED: VANCOMYCIN HCL 750 MG, VIAL MATE ADAPTER 1 EACH in D5W 250 ML IV (11:15)
[2018-03-29 11:54] LABS: LACTIC ACID SEPSIS PROTOCOL 1.2 MMOL/L (0.4-2.0)
[2018-03-29] MEDS: SODIUM CHLORIDE 0.9% 1000 ML IV (11:56)
[2018-03-29] MEDS: MEROPENEM INJ 500 MG in APPROPRIATE DILUENT 1 EA IV (11:56)
[2018-03-29] MEDS: PANTOPRAZOLE 40MG INJ (PROTONIX) (C9113) IV (11:56)
[2018-03-29] MEDS ORDERED: VANCOMYCIN INTERMITTENT/PULSE DOSING BY CLINICAL PHARMACIST PER DOSING PROTOCOL XX (12:30)
[2018-03-29 12:53] LABS: ABG STANDARD HCO3 19.4 MEQ/L (22.0-26.0); ABG TOTAL CO2 18.9 MEQ/L (23.0-31.0)
[2018-03-29 13:02] LABS: ABG BASE EXCESS -6.1 (-2.0-2.0); ABG O2 SATURATION 96.4 % (95.0-99.0); ABG PARTIAL PRESSURE CO2 30.2 mmHg (35.0-45.0); ABG PARTIAL PRESSURE O2 90.4 mmHg (75.0-100.0); ABG pH (ARTERIAL) 7.392 UNITS (7.350-7.450)
[2018-03-29] MEDS: VANCOMYCIN HCL 1,000 MG, VIAL MATE ADAPTER 1 EACH in D5W 250 ML IV (13:02)
[2018-03-29 16:29] LABS: AMORPHOUS SEDIMENT SMALL (NEGATIVE); APPEARANCE, URINE HAZY (CLEAR); BACTERIA, URINE AUTO 1+ (NEGATIVE); BILIRUBIN, URINE AUTO NEGATIVE (NEGATIVE); BLOOD, URINE BLOOD 3+ (NEGATIVE); COLOR, URINE YELLOW (YELLOW); GLUCOSE, URINE (UA) AUTO NEGATIVE (NEGATIVE); KETONE, URINE AUTO NEGATIVE (NEGATIVE); LEUKOCYTE ESTERASE, URINE AUTO TRACE (NEGATIVE); NITRITE, URINE AUTO NEGATIVE (NEGATIVE); PROTEIN, URINE AUTO NEGATIVE (NEGATIVE); RBC, URINE AUTO 14 /HPF (0-3); SPECIFIC GRAVITY URINE AUTO 1.003 (1.002-1.035); SQUAMOUS EPITHELIAL CELL UR AU 0 /HPF (0-6); UROBILINOGEN, URINE AUTO 0.2 mg/dL (0.0-2.0); WBC, URINE AUTO 11 /HPF (0-3)
[2018-03-29 17:20] LABS: BEDSIDE GLUCOSE 110 MG/DL (83-110)
[2018-03-29] MEDS: oxyCODONE 5MG TAB PO (20:00)
[2018-03-29] MEDS: **NOTE PATIENT COMMENT** MISC XX (21:00)
[2018-03-29] MEDS: predniSONE 5 MG TAB PO (21:30)
[2018-03-30 01:00] LABS: BEDSIDE GLUCOSE 105 MG/DL (83-110)
[2018-03-30] MEDS: MEROPENEM INJ 500 MG in APPROPRIATE DILUENT 1 EA IV ×3 (01:04→23:37)
[2018-03-30 05:00] LABS: BASO % 0.1 % (0.0-1.0); EOS % 0.2 % (0.0-3.0); HEMATOCRIT 26.1 % (36.0-47.0); IMMATURE GRANULOCYTE % 0.4 % (0-3.0); LYMPH # 0.9 10^3/uL (1.5-4.5); LYMPH % 3.6 % (24.0-44.0); MEAN CORPUSCULAR HEMOGLOBIN 29.3 pg (27.0-33.0); MEAN CORPUSCULAR HGB CONC 32.6 g/dl (32.0-36.5); MONO # 1.2 10^3/uL (0.0-0.8); MONO % 4.9 % (0.0-5.0); NEUTROPHILS # 21.4 10^3/uL (1.8-7.7); NEUTROPHILS % 90.8 % (36.0-66.0); PLATELET COUNT, AUTOMATED 211 10^3/uL (150-450); RED CELL DISTRIBUTION WIDTH 14.1 % (11.5-14.5); WHITE BLOOD COUNT 23.6 10^3/uL (4.0-10.0)
[2018-03-30 05:19] LABS: ALBUMIN 1.9 GM/DL (3.2-5.2); ALBUMIN/GLOBULIN RATIO 0.63 (1.00-1.93); ALKALINE PHOSPHATASE 91 U/L (45-117); ALT/SGPT 32 U/L (12-78); ANION GAP 9 MEQ/L (8-16); AST/SGOT 34 U/L (7-37); BILIRUBIN,TOTAL 0.3 MG/DL (0.2-1.0); BLOOD UREA NITROGEN 41 MG/DL (7-18); CALCIUM LEVEL 7.8 MG/DL (8.8-10.2); CARBON DIOXIDE LEVEL 18 MEQ/L (21-32); CHLORIDE LEVEL 113 MEQ/L (98-107); CREATININE FOR GFR 2.57 MG/DL (0.55-1.30); GLOMERULAR FILTRATION RATE 19.4 (>39); GLUCOSE, FASTING 103 MG/DL (70-100); MAGNESIUM LEVEL 1.6 MG/DL (1.8-2.4); POTASSIUM SERUM 4.2 MEQ/L (3.5-5.1); SODIUM LEVEL 140 MEQ/L (136-145); TOTAL PROTEIN 4.9 GM/DL (6.4-8.2); VANCOMYCIN RANDOM 13.1 UG/ML
[2018-03-30 05:30] LABS: HEMOGLOBIN 8.5 g/dl (12.0-15.5)
[2018-03-30 05:34] LABS: BEDSIDE GLUCOSE 109 MG/DL (83-110)
[2018-03-30] MEDS: ACETAMINOPHEN 650MG ER TAB (TYLENOL ARTHRITIS) PO ×3 (05:34→21:06)
[2018-03-30] MEDS: NS 1,000 ML IV ×2 (05:34→22:21)
[2018-03-30] MEDS: VANCOMYCIN HCL 500 MG in D5W MINI-BAG PLUS 100 ML IV (06:00)
[2018-03-30] MEDS: MAG SULF 1GM/100ML (MAG RUN) 1 GM in APPROPRIATE DILUENT 1 EA IV (07:51)
[2018-03-30] MEDS: predniSONE 5 MG TAB PO (08:40)
[2018-03-30] MEDS: PANTOPRAZOLE 40MG INJ (PROTONIX) (C9113) IV (11:43)
[2018-03-30 13:42] LABS: BEDSIDE GLUCOSE 78 MG/DL (83-110)
[2018-03-30] MEDS ORDERED: METOPROLOL TART 25 MG TABLET PO (17:00)
[2018-03-30] MEDS ORDERED: METOPROLOL 5 MG/5 ML VIAL IV (17:00)
[2018-03-30 17:24] LABS: BEDSIDE GLUCOSE 95 MG/DL (83-110)
[2018-03-30] MEDS: LABETALOL 100 MG TAB PO (18:15)
[2018-03-30] MEDS: METOPROLOL 5 MG/5 ML VIAL IV ×3 (18:58→19:10)
[2018-03-30 19:22] LABS: ANION GAP 10 MEQ/L (8-16); BLOOD UREA NITROGEN 40 MG/DL (7-18); CALCIUM LEVEL 8.2 MG/DL (8.8-10.2); CARBON DIOXIDE LEVEL 20 MEQ/L (21-32); CHLORIDE LEVEL 113 MEQ/L (98-107); CREATININE FOR GFR 2.42 MG/DL (0.55-1.30); GLOMERULAR FILTRATION RATE 20.8 (>39); GLUCOSE, FASTING 110 MG/DL (70-100); MAGNESIUM LEVEL 2.1 MG/DL (1.8-2.4); POTASSIUM SERUM 4.5 MEQ/L (3.5-5.1); SODIUM LEVEL 143 MEQ/L (136-145)
[2018-03-30] MEDS: **NOTE PATIENT COMMENT** MISC XX (21:00)
[2018-03-30 23:51] LABS: BEDSIDE GLUCOSE 119 MG/DL (83-110)
[2018-03-31 04:20] LABS: BASO % 0.1 % (0.0-1.0); EOS # 0.3 10^3/uL (0.0-0.50); EOS % 1.8 % (0.0-3.0); HEMATOCRIT 25.3 % (36.0-47.0); IMMATURE GRANULOCYTE % 0.4 % (0-3.0); LYMPH # 1.2 10^3/uL (1.5-4.5); LYMPH % 8.3 % (24.0-44.0); MEAN CORPUSCULAR HEMOGLOBIN 28.9 pg (27.0-33.0); MEAN CORPUSCULAR HGB CONC 31.6 g/dl (32.0-36.5); MEAN CORPUSCULAR VOLUME 91.3 fl (80.0-96.0); MONO # 0.9 10^3/uL (0.0-0.8); MONO % 6.3 % (0.0-5.0); NEUTROPHILS % 83.1 % (36.0-66.0); PLATELET COUNT, AUTOMATED 254 10^3/uL (150-450); RED BLOOD COUNT 2.77 10^6/uL (4.00-5.40); RED CELL DISTRIBUTION WIDTH 14.1 % (11.5-14.5); WHITE BLOOD COUNT 14.4 10^3/uL (4.0-10.0)
[2018-03-31 04:33] LABS: ALBUMIN 1.6 GM/DL (3.2-5.2); ALKALINE PHOSPHATASE 81 U/L (45-117); ALT/SGPT 18 U/L (12-78); ANION GAP 8 MEQ/L (8-16); AST/SGOT 19 U/L (7-37); BILIRUBIN,TOTAL 0.2 MG/DL (0.2-1.0); BLOOD UREA NITROGEN 40 MG/DL (7-18); CALCIUM LEVEL 7.8 MG/DL (8.8-10.2); CARBON DIOXIDE LEVEL 20 MEQ/L (21-32); CHLORIDE LEVEL 115 MEQ/L (98-107); CREATININE FOR GFR 2.12 MG/DL (0.55-1.30); GLOMERULAR FILTRATION RATE 24.2 (>39); GLUCOSE, FASTING 88 MG/DL (70-100); POTASSIUM SERUM 4.3 MEQ/L (3.5-5.1); SODIUM LEVEL 143 MEQ/L (136-145); TOTAL PROTEIN 4.8 GM/DL (6.4-8.2); VANCOMYCIN RANDOM 13.2 UG/ML
[2018-03-31] MEDS: VANCOMYCIN HCL 750 MG, VIAL MATE ADAPTER 1 EACH in D5W 250 ML IV (05:17)
[2018-03-31] MEDS: ACETAMINOPHEN 650MG ER TAB (TYLENOL ARTHRITIS) PO ×3 (05:50→20:14)
[2018-03-31] MEDS: LABETALOL 100 MG TAB PO ×2 (05:51→18:14)
[2018-03-31 07:56] LABS: BEDSIDE GLUCOSE 84 MG/DL (83-110)
[2018-03-31] MEDS: predniSONE 5 MG TAB PO (09:06)
[2018-03-31 12:14] LABS: BEDSIDE GLUCOSE 83 MG/DL (83-110)
[2018-03-31] MEDS: MEROPENEM INJ 500 MG in APPROPRIATE DILUENT 1 EA IV (12:44)
[2018-03-31] MEDS: PANTOPRAZOLE 40MG INJ (PROTONIX) (C9113) IV (12:44)
[2018-03-31 17:19] LABS: BEDSIDE GLUCOSE 98 MG/DL (83-110)
[2018-03-31] MEDS: **NOTE PATIENT COMMENT** MISC XX (20:11)
[2018-04-01] MEDS: MEROPENEM INJ 500 MG in APPROPRIATE DILUENT 1 EA IV ×3 (00:16→23:47)
[2018-04-01 00:31] LABS: BEDSIDE GLUCOSE 96 MG/DL (83-110)
[2018-04-01] MEDS: NIFEdipine 60 MG XL TAB PO (03:11)
[2018-04-01 05:35] LABS: BASO % 0.3 % (0.0-1.0); EOS # 0.4 10^3/uL (0.0-0.50); HEMATOCRIT 26.8 % (36.0-47.0); HEMOGLOBIN 8.7 g/dl (12.0-15.5); IMMATURE GRANULOCYTE % 0.5 % (0-3.0); LYMPH # 1.6 10^3/uL (1.5-4.5); LYMPH % 13.4 % (24.0-44.0); MEAN CORPUSCULAR HGB CONC 32.5 g/dl (32.0-36.5); MEAN CORPUSCULAR VOLUME 89.3 fl (80.0-96.0); MONO # 0.9 10^3/uL (0.0-0.8); MONO % 7.6 % (0.0-5.0); NEUTROPHILS # 8.8 10^3/uL (1.8-7.7); NEUTROPHILS % 75.2 % (36.0-66.0); PLATELET COUNT, AUTOMATED 330 10^3/uL (150-450); RED CELL DISTRIBUTION WIDTH 14.3 % (11.5-14.5); WHITE BLOOD COUNT 11.7 10^3/uL (4.0-10.0)
[2018-04-01] MEDS: ACETAMINOPHEN 650MG ER TAB (TYLENOL ARTHRITIS) PO (05:50)
[2018-04-01] MEDS: LABETALOL 100 MG TAB PO ×2 (05:51→17:27)
[2018-04-01 05:56] LABS: ALBUMIN 1.8 GM/DL (3.2-5.2); ALBUMIN/GLOBULIN RATIO 0.53 (1.00-1.93); ALKALINE PHOSPHATASE 83 U/L (45-117); ALT/SGPT 11 U/L (12-78); ANION GAP 7 MEQ/L (8-16); AST/SGOT 16 U/L (7-37); BILIRUBIN,TOTAL 0.3 MG/DL (0.2-1.0); BLOOD UREA NITROGEN 38 MG/DL (7-18); CALCIUM LEVEL 8.1 MG/DL (8.8-10.2); CARBON DIOXIDE LEVEL 21 MEQ/L (21-32); CHLORIDE LEVEL 117 MEQ/L (98-107); CREATININE FOR GFR 1.74 MG/DL (0.55-1.30); GLOMERULAR FILTRATION RATE 30.4 (>39); GLUCOSE, FASTING 82 MG/DL (70-100); MAGNESIUM LEVEL 1.9 MG/DL (1.8-2.4); POTASSIUM SERUM 4.2 MEQ/L (3.5-5.1); SODIUM LEVEL 145 MEQ/L (136-145); TOTAL PROTEIN 5.2 GM/DL (6.4-8.2); VANCOMYCIN RANDOM 18.3 UG/ML
[2018-04-01] MEDS ORDERED: ACETAMINOPHEN 650MG ER TAB (TYLENOL ARTHRITIS) PO (09:15)
[2018-04-01] MEDS: predniSONE 5 MG TAB PO (09:17)
[2018-04-01] MEDS: VANCOMYCIN HCL 750 MG, VIAL MATE ADAPTER 1 EACH in D5W 250 ML IV (09:18)
[2018-04-01] MEDS: DOCUSATE SODIUM 100 MG CAP PO (09:51)
[2018-04-01 11:42] LABS: BEDSIDE GLUCOSE 131 MG/DL (83-110)
[2018-04-01] MEDS: PANTOPRAZOLE 40MG INJ (PROTONIX) (C9113) IV (11:43)
[2018-04-01] MEDS: CIPROFLOXACIN 250 MG TAB PO ×2 (11:44→17:26)
[2018-04-01] MEDS: EXCEDRIN MIGRAINE TABLET PO (13:11)
[2018-04-01] MEDS: CAPTOpril 12.5 MG TAB PO (21:26)
[2018-04-02] MEDS: LABETALOL 100 MG TAB PO (04:58)
[2018-04-02] MEDS: CIPROFLOXACIN 250 MG TAB PO (04:58)
[2018-04-02 05:21] LABS: BASO % 0.2 % (0.0-1.0); EOS # 0.3 10^3/uL (0.0-0.50); EOS % 3.1 % (0.0-3.0); HEMATOCRIT 27.5 % (36.0-47.0); IMMATURE GRANULOCYTE % 0.5 % (0-3.0); LYMPH # 1.8 10^3/uL (1.5-4.5); LYMPH % 16.5 % (24.0-44.0); MEAN CORPUSCULAR HEMOGLOBIN 29.3 pg (27.0-33.0); MEAN CORPUSCULAR HGB CONC 32.7 g/dl (32.0-36.5); MEAN CORPUSCULAR VOLUME 89.6 fl (80.0-96.0); MONO # 0.9 10^3/uL (0.0-0.8); MONO % 8.1 % (0.0-5.0); NEUTROPHILS # 7.7 10^3/uL (1.8-7.7); NEUTROPHILS % 71.6 % (36.0-66.0); PLATELET COUNT, AUTOMATED 347 10^3/uL (150-450); RED BLOOD COUNT 3.07 10^6/uL (4.00-5.40); RED CELL DISTRIBUTION WIDTH 14.1 % (11.5-14.5); WHITE BLOOD COUNT 10.7 10^3/uL (4.0-10.0)
[2018-04-02 05:42] LABS: ALBUMIN/GLOBULIN RATIO 0.57 (1.00-1.93); ALKALINE PHOSPHATASE 83 U/L (45-117); ALT/SGPT 11 U/L (12-78); ANION GAP 8 MEQ/L (8-16); AST/SGOT 14 U/L (7-37); BILIRUBIN,TOTAL 0.3 MG/DL (0.2-1.0); BLOOD UREA NITROGEN 36 MG/DL (7-18); CARBON DIOXIDE LEVEL 21 MEQ/L (21-32); CHLORIDE LEVEL 115 MEQ/L (98-107); CREATININE FOR GFR 1.71 MG/DL (0.55-1.30); GLOMERULAR FILTRATION RATE 31.1 (>39); GLUCOSE, FASTING 80 MG/DL (70-100); MAGNESIUM LEVEL 1.7 MG/DL (1.8-2.4); POTASSIUM SERUM 4.1 MEQ/L (3.5-5.1); SODIUM LEVEL 144 MEQ/L (136-145); TOTAL PROTEIN 5.5 GM/DL (6.4-8.2)
[2018-04-02] MEDS: MAG SULF 1GM/100ML (MAG RUN) 1 GM in APPROPRIATE DILUENT 1 EA IV (06:51)
[2018-04-02] MEDS: predniSONE 5 MG TAB PO (08:07)
[2018-04-02] MEDS: CAPTOpril 12.5 MG TAB PO (08:07)
[2018-04-02] MEDS: NIFEdipine 60 MG XL TAB PO (09:20)
[2018-04-02] MEDS: PANTOPRAZOLE 40MG INJ (PROTONIX) (C9113) IV (11:52)
== END 2018-04-02 17:10 | disposition home or self-care (01) | DRG 699 ==
LOC: M OR 06:00 → M ICU 03-29 11:10 → M MSPAV 03-30 08:55 → M PCU 03-30 18:45
PROC: 0TP98DZ Removal of Intraluminal Device from Ureter, Via Natural or Artificial Opening Endoscopic (ICD-10-PCS; principal; 2018-03-27 07:30)
PROC: 0TB34ZX Excision of Right Kidney Pelvis, Percutaneous Endoscopic Approach, Diagnostic (ICD-10-PCS; 2018-03-27 07:30)
PROC: 8E0W4CZ Robotic Assisted Procedure of Trunk Region, Percutaneous Endoscopic Approach (ICD-10-PCS; 2018-03-27 07:30)
PROC: 0T768DZ Dilation of Right Ureter with Intraluminal Device, Via Natural or Artificial Opening Endoscopic (ICD-10-PCS; 2018-03-27 07:30)
DX: Q62.11 Congenital occlusion of ureteropelvic junction (principal); N13.30 Unspecified hydronephrosis; K91.89 Other postprocedural complications and disorders of digestive system; E87.2 Acidosis; M34.9 Systemic sclerosis, unspecified; N17.9 Acute kidney failure, unspecified; I48.91 Unspecified atrial fibrillation; I12.9 Hypertensive chronic kidney disease with stage 1 through stage 4 chronic kidney disease, or unspecified chronic kidney disease; I95.9 Hypotension, unspecified; E83.42 Hypomagnesemia; I73.00 Raynaud's syndrome without gangrene; N18.3 Chronic kidney disease, stage 3 (moderate); I16.0 Hypertensive urgency; Z87.891 Personal history of nicotine dependence; Z79.52 Long term (current) use of systemic steroids; Z79.899 Other long term (current) drug therapy

== ENCOUNTER → 2018-04-19 | Outpatient (REF) | payer MEDICARE, BC ==
[2018-04-19 19:05] LABS: AMORPHOUS SEDIMENT SMALL (NEGATIVE); APPEARANCE, URINE HAZY (CLEAR); BACTERIA, URINE AUTO 1+ (NEGATIVE); BILIRUBIN, URINE AUTO NEGATIVE (NEGATIVE); BLOOD, URINE BLOOD 3+ (NEGATIVE); COLOR, URINE YELLOW (YELLOW); GLUCOSE, URINE (UA) AUTO NEGATIVE (NEGATIVE); KETONE, URINE AUTO NEGATIVE (NEGATIVE); LEUKOCYTE ESTERASE, URINE AUTO 2+ (NEGATIVE); MUCUS, URINE SMALL (NEGATIVE); NITRITE, URINE AUTO NEGATIVE (NEGATIVE); PROTEIN, URINE AUTO 2+ mg/dL (NEGATIVE); RBC, URINE AUTO TNTC /HPF (0-3); SPECIFIC GRAVITY URINE AUTO 1.016 (1.002-1.035); SQUAMOUS EPITHELIAL CELL UR AU 0 /HPF (0-6); UROBILINOGEN, URINE AUTO 0.2 mg/dL (0.0-2.0); WBC, URINE AUTO 27 /HPF (0-3)
== END ==
LOC: M SMT 17:57
DX: N13.1 Hydronephrosis with ureteral stricture, not elsewhere classified (principal)
CPT/HCPCS: 81001

== ENCOUNTER → 2018-07-30 | Outpatient (REF) | payer MEDICARE, BC ==
[2018-07-30 13:45] LABS: APPEARANCE, URINE HAZY (CLEAR); BACTERIA, URINE AUTO NEGATIVE (NEGATIVE); BILIRUBIN, URINE AUTO NEGATIVE (NEGATIVE); BLOOD, URINE BLOOD NEGATIVE (NEGATIVE); CALCIUM OXALATE CRYSTALS LARGE; COLOR, URINE YELLOW (YELLOW); GLUCOSE, URINE (UA) AUTO NEGATIVE (NEGATIVE); KETONE, URINE AUTO NEGATIVE (NEGATIVE); LEUKOCYTE ESTERASE, URINE AUTO NEGATIVE (NEGATIVE); MUCUS, URINE SMALL (NEGATIVE); NITRITE, URINE AUTO NEGATIVE (NEGATIVE); PROTEIN, URINE AUTO 2+ mg/dL (NEGATIVE); RBC, URINE AUTO 2 /HPF (0-3); SPECIFIC GRAVITY URINE AUTO 1.016 (1.002-1.035); SQUAMOUS EPITHELIAL CELL UR AU 0 /HPF (0-6); UROBILINOGEN, URINE AUTO 0.2 mg/dL (0.0-2.0); WBC, URINE AUTO 1 /HPF (0-3)
== END ==
LOC: M SMT 13:14
DX: N13.1 Hydronephrosis with ureteral stricture, not elsewhere classified (principal)
CPT/HCPCS: 81001

== ENCOUNTER → 2018-09-06 | Outpatient (CLI) | payer MEDICARE, BC | LOC: M CARPUL 09:43 | DX: I35.8 Other nonrheumatic aortic valve disorders (principal); I42.2 Other hypertrophic cardiomyopathy; I34.8 Other nonrheumatic mitral valve disorders; I34.0 Nonrheumatic mitral (valve) insufficiency; M34.9 Systemic sclerosis, unspecified | CPT/HCPCS: 93306 ==

== ENCOUNTER 2018-10-10 03:21 | Emergency (ER) | payer MEDICARE, BC ==
[2018-10-10 03:45] LABS: BASO # 0.1 10^3/uL (0.0-0.2); BASO % 0.2 % (0.0-1.0); EOS # 0.2 10^3/uL (0.0-0.50); EOS % 0.6 % (0.0-3.0); HEMOGLOBIN 10.3 g/dl (12.0-15.5); LYMPH # 3.4 10^3/uL (1.5-4.5); LYMPH % 12.3 % (24.0-44.0); MEAN CORPUSCULAR HGB CONC 30.3 g/dl (32.0-36.5); MEAN CORPUSCULAR VOLUME 95.8 fl (80.0-96.0); MONO % 7.3 % (0.0-5.0); NEUTROPHILS # 21.6 10^3/uL (1.8-7.7); NEUTROPHILS % 78.6 % (36.0-66.0); PLATELET COUNT, AUTOMATED 424 10^3/uL (150-450); RED BLOOD COUNT 3.55 10^6/uL (4.00-5.40); RED CELL DISTRIBUTION WIDTH 14.1 % (11.5-14.5); WHITE BLOOD COUNT 27.5 10^3/uL (4.0-10.0)
[2018-10-10] MEDS: IPRATROPIUM 0.5MG/ALBUTEROL 2.5MG INH SOL UD 3ML (DUONEB)(J7620) NEB ×2 (03:59→04:29)
[2018-10-10 04:02] LABS: INR 1.21; PROTHROMBIN TIME 15.5 SECONDS (12.1-14.4)
[2018-10-10 04:03] LABS: PARTIAL THROMBOPLASTIN TIME 27.3 SECONDS (25.4-37.6)
[2018-10-10 04:05] LABS: ABG BASE EXCESS -10.3 (-2.0-2.0); ABG O2 SATURATION 98.2 % (95.0-99.0); ABG PARTIAL PRESSURE O2 129.1 mmHg (75.0-100.0); ABG STANDARD HCO3 16.2 MEQ/L (22.0-26.0); ABG TOTAL CO2 15.9 MEQ/L (23.0-31.0); ABG pH (ARTERIAL) 7.302 UNITS (7.350-7.450)
[2018-10-10] MEDS: LABETALOL HCL 100 MG/20 ML VIAL IV (04:08)
[2018-10-10] MEDS: ONDANSETRON 4MG/2ML VIAL (J2405) IV (04:22)
[2018-10-10 04:29] LABS: ALBUMIN 3.2 GM/DL (3.2-5.2); ALBUMIN/GLOBULIN RATIO 1.14 (1.00-1.93); ALKALINE PHOSPHATASE 126 U/L (45-117); ALT/SGPT 152 U/L (12-78); ANION GAP 14 MEQ/L (8-16); AST/SGOT 188 U/L (7-37); BILIRUBIN,DIRECT < 0.1 MG/DL (0.0-0.2); BILIRUBIN,TOTAL 0.3 MG/DL (0.2-1.0); BLOOD UREA NITROGEN 37 MG/DL (7-18); CALCIUM LEVEL 8.6 MG/DL (8.8-10.2); CARBON DIOXIDE LEVEL 18 MEQ/L (21-32); CHLORIDE LEVEL 108 MEQ/L (98-107); CPK CREATINE PHOSPHOKINASE 58 U/L (26-192); CREATININE FOR GFR 2.05 MG/DL (0.55-1.30); FREE T4 0.96 NG/DL (0.76-1.46); GLOMERULAR FILTRATION RATE 25.2 (>39); GLUCOSE, FASTING 238 MG/DL (70-100); LIPASE 187 U/L (73-393); MB/CK RELATIVE INDEX 6.55 (< OR =4); NT-PRO BNP 34418 PG/ML (<125); SODIUM LEVEL 140 MEQ/L (136-145)
[2018-10-10] MEDS: cefTRIAXone SOD 1 GM in D5W MINI-BAG PLUS 50 ML IV (04:50)
[2018-10-10] MEDS: FUROSEMIDE 40 MG/4 ML VIAL (J1940) IV (04:50)
[2018-10-10] MEDS: AZITHROMYCIN INJ 500 MG, VIAL MATE ADAPTER 1 EACH in D5W 250 ML IV (05:01)
[2018-10-10] MEDS: EPINEPHrine 1MG/10ML SYRINGE 1.5IN IV ×4 (05:45→05:54)
[2018-10-10] MEDS: SODIUM BICARBONATE 8.4% INJ 50 ML SYRINGE IV (05:50)
[2018-10-12] MEDS ORDERED: PNEUMOCOCCAL VACCINE 0.5ML SYRINGE(90732) PNEUMOVAX 23 IM (08:00)
== END 2018-10-10 08:40 | disposition expired ==
LOC: M ED 03:21
DX: I46.9 Cardiac arrest, cause unspecified (principal); R06.03 Acute respiratory distress; J18.9 Pneumonia, unspecified organism; R00.0 Tachycardia, unspecified; I44.7 Left bundle-branch block, unspecified; J44.9 Chronic obstructive pulmonary disease, unspecified; E78.5 Hyperlipidemia, unspecified; G43.909 Migraine, unspecified, not intractable, without status migrainosus; F41.9 Anxiety disorder, unspecified; M34.9 Systemic sclerosis, unspecified; Z87.891 Personal history of nicotine dependence; Z79.899 Other long term (current) drug therapy
CPT/HCPCS: J0456